=== PATIENT | male | born 1930 | race African-American/Black ===

== ENCOUNTER 2016-05-08 14:10 | Emergency (ER) | payer MEDICARE, BC ==
[2016-05-08 14:39] VITALS: TEMP 98.2
[2016-05-08 15:08] VITALS: BP 191/100; PULSE 89; RESP 20
[2016-05-08] MEDS ORDERED: LISINOPRIL 10 MG TAB PO STA (15:13)
--- NOTE | 2016-05-08 15:21 | ED ---
Skin/Abscess/FB HPI - General Chief complaint: Skin/Abscess/Foreign Body Stated complaint: Poss shingles Time Seen by Provider: 05/08/16 14:40 Source: patient, RN notes reviewed Mode of arrival: ambulatory Limitations: no limitations - History of Present Illness Initial comments: Patient is a 85-year-old male since emergency room for evaluation of skin rash. Patient states he thinks he has shingles. Patient states symptoms began "a few days ago". Patient states he has a rash beginning from his right flank area that radiates to the right side of his abdomen. Patient states the rash is very painful. Patient denies being on any medications or significant past medical history. Patient states he hasn't been to a primary care provider in many years. Patient denies any fevers or chills. Patient denies headache or dizziness. Patient denies chest pain or shortness of breath. Patient has nausea or vomiting. Patient denies any other symptoms or complaints. - Related Data Previous Rx's Medication Instructions Recorded HYDROcodone/APAP 5-325MG [Britt 1 tab PO Q6HR PRN #10 tab 05/08/16 5-325] Lisinopril [Zestril] 10 mg PO DAILY #10 tab 05/08/16 valACYclovir HCL [Valacyclovir] 1,000 mg PO TID 7 Days 05/08/16 Allergies Allergy/AdvReac Type Severity Reaction Status Date / Time No Known Allergies Allergy Verified 05/08/16 14:39 Review of Systems ROS Statement: Those systems with pertinent positive or pertinent negative responses have been documented in the HPI. ROS Other: All systems not noted in ROS Statement are negative. Past Medical History Past Medical History: No Reported History History of Any Multi-Drug Resistant Organisms: None Reported Past Surgical History: No Surgical Hx Reported Past Psychological History: No Psychological Hx Reported Smoking Status: Never smoker Past Alcohol Use History: Occasional Past Drug Use History: None Reported General Exam - General Exam Comments Initial Comments: Sitting in exam room, no acute distress. Limitations: no limitations General appearance: alert Head exam: Present: atraumatic, normocephalic, normal inspection Eye exam: Present: normal appearance ENT exam: Present: normal exam Neck exam: Present: normal inspection Respiratory exam: Present: normal lung sounds bilaterally. Absent: respiratory distress Cardiovascular Exam: Present: regular rate, normal rhythm, normal heart sounds Extremities exam: Present: normal inspection Back exam: Present: normal inspection Neurological exam: Present: alert, oriented X3, CN II-XII intact, normal gait Psychiatric exam: Present: normal affect, normal mood Skin exam: Present: warm, dry, other (Erythematous and crusted over papules along with clustered vesicles located on the right flank radiating to right side of mid abdomen. Pain on palpating over the lesions.) Course Vital Signs 05/08/16 05/08/16 14:36 15:07 Temperature 98.2 F Pulse Rate 100 89 Respiratory 16 20 Rate Blood Pressure 191/98 191/100 O2 Sat by Pulse 95 Oximetry Medical Decision Making - Medical Decision Making Patient is an 85-year-old male presents to the emergency room for evaluation of rash. Rash consistent with herpes zoster. Patient also noted to have elevated blood pressure. Will place patient on lisinopril and him follow-up with his primary care provider for reevaluation of blood pressure and possible placement on long-term blood pressure medications. Patient will be started on Valcyclovir for shingles. Patient will be given pain medications as needed. Patient states he understands everything that was discussed with him. Return parameters discussed. Case discussed with Dr. Holm. Disposition Clinical Impression: Herpes zoster, Hypertension Disposition: HOME SELF-CARE Condition: Good Instructions: Shingles (ED), Hypertension (ED) Additional Instructions: Take blood pressure medication as directed. Take valacyclovir as directed for shingles. Take Britt as needed for severe pain. Please follow-up with the primary care provider for reevaluation of blood pressure and shingles in 24-48 hours. If any new symptom arises, symptoms worsen or fever develops, return to ER as soon as possible. Prescriptions: HYDROcodone/APAP 5-325MG [Britt 5-325] 1 tab PO Q6HR PRN #10 tab PRN Reason: Pain Lisinopril [Zestril] 10 mg PO DAILY #10 tab valACYclovir HCL [Valacyclovir] 1,000 mg PO TID 7 Days Referrals: Nilsa Bryant MD [REFERRING] - 1-2 days Time of Disposition: 15:18
== END 2016-05-08 15:37 | disposition home or self-care (01) ==
LOC: EC 14:10
DX: B02.9 Zoster without complications (principal); I10 Essential (primary) hypertension
CPT/HCPCS: 99282

== ENCOUNTER 2017-06-02 20:08 | Emergency (ER) | payer MEDICARE ==
[2017-06-02 20:25] VITALS: PULSE 99; RESP 17
[2017-06-02] MEDS ORDERED: ACETAMINOPHEN TAB 500 MG TAB PO STA (21:23)
[2017-06-02] MEDS ORDERED: ONDANSETRON 4 MG/2 ML VIAL IVP STA (21:24)
--- NOTE | 2017-06-02 21:26 | ED ---
General Adult HPI - General Chief complaint: Nausea/Vomiting/Diarrhea Stated complaint: Vomiting Time Seen by Provider: 06/02/17 20:26 Source: patient, family, RN notes reviewed Mode of arrival: ambulatory Limitations: no limitations - History of Present Illness Initial comments: Patient is a pleasant 86-year-old male presenting to the emergency Department with complaints of nausea and vomiting. Onset of symptoms was yesterday. Patient also has fever. Patient has vomited several times. No abdominal pain. Patient has mild rhinorrhea. No sore throat. Patient does feel dry and fatigued and weak all over. No cough or dyspnea. - Related Data Home Medications Medication Instructions Recorded Confirmed metFORMIN HCL [Glucophage] 500 mg PO DAILY 06/02/17 06/02/17 Previous Rx's Medication Instructions Recorded Levofloxacin [Levaquin] 500 mg PO DAILY #9 tab 06/02/17 Allergies Allergy/AdvReac Type Severity Reaction Status Date / Time No Known Allergies Allergy Verified 06/02/17 20:59 Review of Systems ROS Statement: Those systems with pertinent positive or pertinent negative responses have been documented in the HPI. ROS Other: All systems not noted in ROS Statement are negative. Constitutional: Reports: fever, chills, weakness Eyes: Denies: eye pain ENT: Reports: congestion. Denies: ear pain Respiratory: Denies: cough, dyspnea Cardiovascular: Denies: chest pain Endocrine: Reports: fatigue Gastrointestinal: Reports: nausea, vomiting. Denies: abdominal pain, diarrhea, constipation Genitourinary: Denies: dysuria Musculoskeletal: Denies: back pain Skin: Denies: rash Neurological: Denies: headache Past Medical History Past Medical History: No Reported History Additional Past Medical History / Comment(s): shingles History of Any Multi-Drug Resistant Organisms: None Reported Past Surgical History: No Surgical Hx Reported Additional Past Surgical History / Comment(s): bilateral eye surgery Past Psychological History: No Psychological Hx Reported Smoking Status: Never smoker Past Alcohol Use History: Occasional Past Drug Use History: None Reported General Exam Limitations: no limitations General appearance: alert, in no apparent distress Head exam: Present: atraumatic Eye exam: Present: normal appearance, PERRL ENT exam: Present: normal oropharynx Neck exam: Present: normal inspection Respiratory exam: Present: normal lung sounds bilaterally Cardiovascular Exam: Present: regular rate, normal rhythm GI/Abdominal exam: Present: soft. Absent: tenderness Extremities exam: Present: normal inspection Neurological exam: Present: alert Psychiatric exam: Present: normal affect, normal mood Skin exam: Present: normal color Course Vital Signs 06/02/17 20:19 Temperature 100.4 F H Pulse Rate 99 Respiratory 17 Rate Blood Pressure 185/89 O2 Sat by Pulse 96 Oximetry EKG Findings - EKG Comments: EKG Findings:: Sinus tachycardia 103. IL 186. QRS 96. QT 334. QTC 437. Left axis. LVH criteria. Nonspecific T waves. Medical Decision Making - Medical Decision Making Patient reevaluated and feels much better. Patient and family updated on results. Patient requests discharge home. Case was discussed with Dr. De Dios who is okay with this and does recommend follow-up. - Lab Data Result diagrams: 06/02/17 20:50 06/02/17 20:50 Lab Results 06/02/17 06/02/17 06/02/17 Range/Units 20:50 20:50 20:50 WBC 11.3 H (3.8-10.6) k/uL RBC 4.53 (4.30-5.90) m/uL Hgb 13.5 (13.0-17.5) gm/dL Hct 38.5 L (39.0-53.0) % MCV 85.0 (80.0-100.0) fL MCH 29.7 (25.0-35.0) pg MCHC 34.9 (31.0-37.0) g/dL RDW 12.7 (11.5-15.5) % Plt Count 213 (150-450) k/uL Neutrophils % 73 % Lymphocytes % 14 % Monocytes % 9 % Eosinophils % 1 % Basophils % 0 % Neutrophils # 8.2 H (1.3-7.7) k/uL Lymphocytes # 1.6 (1.0-4.8) k/uL Monocytes # 1.0 (0-1.0) k/uL Eosinophils # 0.1 (0-0.7) k/uL Basophils # 0.0 (0-0.2) k/uL PT (9.0-12.0) sec INR (<1.2) APTT (22.0-30.0) sec Sodium 139 (137-145) mmol/L Potassium 4.1 (3.5-5.1) mmol/L Chloride 100 (98-107) mmol/L Carbon Dioxide 25 (22-30) mmol/L Anion Gap 14 mmol/L BUN 18 (9-20) mg/dL Creatinine 1.20 (0.66-1.25) mg/dL Est GFR (MDRD) Af Amer >60 (>60 ml/min/1.73 sqM) Est GFR (MDRD) Non-Af 58 (>60 ml/min/1.73 sqM) Glucose 142 H (74-99) mg/dL Plasma Lactic Acid Micah 1.4 (0.7-2.0) mmol/L Calcium 9.1 (8.4-10.2) mg/dL Total Bilirubin 0.6 (0.2-1.3) mg/dL AST 35 (17-59) U/L ALT 15 L (21-72) U/L Alkaline Phosphatase 85 (38-126) U/L Total Protein 7.8 (6.3-8.2) g/dL Albumin 4.1 (3.5-5.0) g/dL Urine Color Urine Appearance (Clear) Urine pH (5.0-8.0) Ur Specific [place] (1.001-1.035) Urine Protein (Negative) Urine Glucose (UA) (Negative) Urine Ketones (Negative) Urine Blood (Negative) Urine Nitrite (Negative) Urine Bilirubin (Negative) Urine Urobilinogen (<2.0) mg/dL Ur Leukocyte Esterase (Negative) Urine RBC (0-5) /hpf Urine WBC (0-5) /hpf Ur Squamous Epith Cells (0-4) /hpf Urine Mucus (None) /hpf Influenza Type A RNA (Not Detectd) Influenza Type B (PCR) (Not Detectd) 06/02/17 06/02/17 06/02/17 Range/Units 20:50 21:45 22:04 WBC (3.8-10.6) k/uL RBC (4.30-5.90) m/uL Hgb (13.0-17.5) gm/dL Hct (39.0-53.0) % MCV (80.0-100.0) fL MCH (25.0-35.0) pg MCHC (31.0-37.0) g/dL RDW (11.5-15.5) % Plt Count (150-450) k/uL Neutrophils % % Lymphocytes % % Monocytes % % Eosinophils % % Basophils % % Neutrophils # (1.3-7.7) k/uL Lymphocytes # (1.0-4.8) k/uL Monocytes # (0-1.0) k/uL Eosinophils # (0-0.7) k/uL Basophils # (0-0.2) k/uL PT 12.6 H (9.0-12.0) sec INR 1.3 H (<1.2) APTT 24.7 (22.0-30.0) sec Sodium (137-145) mmol/L Potassium (3.5-5.1) mmol/L Chloride (98-107) mmol/L Carbon Dioxide (22-30) mmol/L Anion Gap mmol/L BUN (9-20) mg/dL Creatinine (0.66-1.25) mg/dL Est GFR (MDRD) Af Amer (>60 ml/min/1.73 sqM) Est GFR (MDRD) Non-Af (>60 ml/min/1.73 sqM) Glucose (74-99) mg/dL Plasma Lactic Acid Micah (0.7-2.0) mmol/L Calcium (8.4-10.2) mg/dL Total Bilirubin (0.2-1.3) mg/dL AST (17-59) U/L ALT (21-72) U/L Alkaline Phosphatase (38-126) U/L Total Protein (6.3-8.2) g/dL Albumin (3.5-5.0) g/dL Urine Color Yellow Urine Appearance Clear (Clear) Urine pH 5.5 (5.0-8.0) Ur Specific [place] 1.024 (1.001-1.035) Urine Protein 2+ H (Negative) Urine Glucose (UA) Trace H (Negative) Urine Ketones 1+ H (Negative) Urine Blood Small H (Negative) Urine Nitrite Negative (Negative) Urine Bilirubin Negative (Negative) Urine Urobilinogen <2.0 (<2.0) mg/dL Ur Leukocyte Esterase Negative (Negative) Urine RBC 4 (0-5) /hpf Urine WBC 2 (0-5) /hpf Ur Squamous Epith Cells <1 (0-4) /hpf Urine Mucus Moderate H (None) /hpf Influenza Type A RNA Not Detected (Not Detectd) Influenza Type B (PCR) Not Detected (Not Detectd) - Radiology Data Radiology results: image reviewed (Chest x-ray shows left lower lobe infiltrate. ) Disposition Clinical Impression: Pneumonia Disposition: HOME SELF-CARE Condition: Stable Instructions: Pneumonia (ED) Additional Instructions: Please follow-up with Dr. De Dios next day or 2 for recheck. Return for difficulty in breathing, not tolerating fluids, worsening symptoms or any other concerns. Continue [id number] Tylenol as needed. Prescriptions: Levofloxacin [Levaquin] 500 mg PO DAILY #9 tab Referrals: Yahir De Dios MD [Primary Care Provider] - 1-2 days Time of Disposition: 22:42
[2017-06-02] MEDS ORDERED: SODIUM CHLORIDE 0.9% 500 ML IV SCH (21:30)
[2017-06-02 21:47] LABS: Basophils % (A) 0 %; Eosinophils # (A) 0.1 k/uL (0-0.7); Eosinophils % (A) 1 %; HCT 38.5 % (39.0-53.0); HGB 13.5 gm/dL (13.0-17.5); Lymphocytes # (A) 1.6 k/uL (1.0-4.8); Lymphocytes % (A) 14 %; MCH 29.7 pg (25.0-35.0); MCHC 34.9 g/dL (31.0-37.0); Mean Platelet Volume 8.4; Monocytes % (A) 9 %; Neutrophils # (A) 8.2 k/uL (1.3-7.7); Neutrophils % (A) 73 %; Platelet Count 213 k/uL (150-450); RBC 4.53 m/uL (4.30-5.90); RDW 12.7 % (11.5-15.5); WBC 11.3 k/uL (3.8-10.6)
[2017-06-02 21:52] LABS: INR 1.3 (<1.2); Partial Thromboplastin Time 24.7 sec (22.0-30.0); Prothrombin Time 12.6 sec (9.0-12.0)
[2017-06-02 22:01] LABS: ALT 15 U/L (21-72); AST 35 U/L (17-59); Albumin 4.1 g/dL (3.5-5.0); Alkaline Phosphatase 85 U/L (38-126); Anion Gap 14 mmol/L; Blood Urea Nitrogen 18 mg/dL (9-20); Calcium 9.1 mg/dL (8.4-10.2); Carbon Dioxide 25 mmol/L (22-30); Chloride 100 mmol/L (98-107); Glucose 142 mg/dL (74-99); Potassium 4.1 mmol/L (3.5-5.1); Sodium 139 mmol/L (137-145); Total Bilirubin 0.6 mg/dL (0.2-1.3); Total Protein 7.8 g/dL (6.3-8.2)
--- NOTE | 2017-06-02 22:04 | XR ---
EXAMINATION TYPE: XR chest 2V DATE OF EXAM: 06/02/2017 COMPARISON: NONE HISTORY: Fever TECHNIQUE: Frontal and lateral views of the chest are obtained. FINDINGS: There is evidence of infiltrate in the left lower lobe behind the heart. There is no defin ite heart failure. I see no definite pleural effusion. There are chest leads. Bony thorax is intact. IMPRESSION: Left lower lobe pneumonia. No gross heart failure.
--- NOTE | 2017-06-02 22:06 | XR ---
EXAMINATION TYPE: XR abdomen 2V DATE OF EXAM: 06/02/2017 COMPARISON: NONE HISTORY: Fever TECHNIQUE: 2 views FINDINGS: There is no sign of intestinal obstruction or pneumoperitoneum. Fecal pattern is normal. Th ere is infiltrate in the left lower lobe. There are no pathologic calcifications over the kidneys. Th ere is no sign of a mass. IMPRESSION: Nonacute abdomen.
[2017-06-02 22:23] LABS: Appearance,Urine Clear (Clear); Bilirubin,Urine Negative (Negative); Blood,Urine Small (Negative); Color,Urine Yellow; Glucose,Urine (UA) Trace (Negative); Ketones,Urine 1+ (Negative); Leukocyte Esterase,Urine Negative (Negative); Mucus,Urine Moderate /hpf; Nitrite,Urine Negative (Negative); PH, Urine 5.5 (5.0-8.0); Protein,Urine 2+ (Negative); RBC,Urine 4 /hpf (0-5); Specific Gravity,Urine 1.024 (1.001-1.035); Squamous Epithelial Cell,Urine <1 /hpf (0-4); Urobilinogen,Urine <2.0 mg/dL (<2.0); WBC,Urine 2 /hpf (0-5)
[2017-06-02] MEDS ORDERED: LEVOFLOXACIN 750 MG TAB PO STA (22:42)
[2017-06-02 22:45] VITALS: BP 133/74; TEMP 99.1
== END 2017-06-02 22:59 | disposition home or self-care (01) ==
LOC: EC 20:08
DX: J18.9 Pneumonia, unspecified organism (principal); Z79.84 Long term (current) use of oral hypoglycemic drugs
CPT/HCPCS: 36415; 93005; 80053; 83605; 85025; 85610; 85730; 81001; 87040; 87086; 87502; 71046; 74019; 99284; 96374; 96361; J2405

== ENCOUNTER 2018-08-12 15:29 | Inpatient (IN) | payer MEDICARE ==
[2018-08-12] MEDS ORDERED: ONDANSETRON 4 MG/2 ML VIAL IVP STA (16:52)
[2018-08-12] MEDS ORDERED: SODIUM CHLORIDE 0.9% 2,000 ML IV STA (16:52)
[2018-08-12 17:18] LABS: Basophils % (A) 0 %; Eosinophils # (A) 0.1 k/uL (0-0.7); Eosinophils % (A) 1 %; HCT 38.3 % (39.0-53.0); HGB 13.3 gm/dL (13.0-17.5); Lymphocytes # (A) 2.6 k/uL (1.0-4.8); Lymphocytes % (A) 25 %; MCH 29.8 pg (25.0-35.0); MCHC 34.7 g/dL (31.0-37.0); MCV 85.7 fL (80.0-100.0); Monocytes # (A) 1.2 k/uL (0-1.0); Monocytes % (A) 12 %; Neutrophils # (A) 5.8 k/uL (1.3-7.7); Neutrophils % (A) 56 %; Platelet Count 332 k/uL (150-450); RBC 4.46 m/uL (4.30-5.90); RDW 14.1 % (11.5-15.5); WBC 10.3 k/uL (3.8-10.6)
[2018-08-12 17:26] LABS: Albumin 4.7 g/dL (3.5-5.0); Calcium 9.9 mg/dL (8.4-10.2); Magnesium 2.4 mg/dL (1.6-2.3); Potassium 5.1 mmol/L (3.5-5.1); Total Bilirubin 0.7 mg/dL (0.2-1.3); Total Protein 8.2 g/dL (6.3-8.2)
--- NOTE | 2018-08-12 18:10 | CT ---
EXAMINATION TYPE: CT abdomen pelvis wo con DATE OF EXAM: 08/12/2018 COMPARISON: None HISTORY: Abdominal pain and diarrhea x1 week CT DLP: 373.3 mGycm Automated exposure control for dose reduction was used. TECHNIQUE: Helical acquisition of images was performed from the lung bases through the pelvis. FINDINGS: Lung bases show interstitial infiltrates and atelectasis. There is no pleural effusion. Heart is enla rged. There is no pericardial effusion. There are numerous hypodense masses throughout the liver. These measure up to 5 cm. Spleen appears no rmal. There is no evidence of a pancreatic mass. Bile ducts are not dilated. Stomach appears normal. There is no adrenal mass. Kidneys show normal size. There is no hydronephrosis. There is 2.5 cm corti beau cyst posterior right kidney. There is no retroperitoneal adenopathy. Bladder distends smoothly. There is 4.5 cm enlarged prostate. There is no free fluid in the pelvis. T here are numerous diverticula in the sigmoid colon. I see no sign of diverticulitis. There is mild bl adder wall thickening. No bladder mass identified. The appendix appears normal. There is no evidence of a bowel obstruction. There is suggestion of a ma ss involving the rectum on the left lateral wall. This could measure 3 cm. There is asymmetric lumina l air in the rectum. There is no mesenteric edema. There is no ascites. There is very slight loss of height of T11 vertebra. I see no focal bone destruction. 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 POSSIBLE LEFT LATERAL WALL RECTAL MASS . MODERATE INTERSTITIAL INFILTRATES AT THE LUNG BASES. RIGHT RENAL CORTICAL CYST. NORMAL APPENDIX. MILD URINARY BLADDER WALL THICKENING CONSISTENT WITH NONSPECIFIC CYSTITIS. SIGMOID DIVERTICULOSIS.
--- NOTE | 2018-08-12 18:12 | XR ---
EXAMINATION TYPE: XR chest 2V DATE OF EXAM: 08/12/2018 COMPARISON: 08/12/2018 HISTORY: Weakness TECHNIQUE: Frontal and lateral views of the chest are obtained. FINDINGS: Heart and mediastinum are normal. There is some coarsening of interstitial pulmonary jose ngs.. There is no pleural effusion. There are chest leads. No heart failure IMPRESSION: Mild coarsening of the lung markings consistent with some fibrosis and pulmonary congest ion.. Normal heart. Pulmonary vascularity improved compared to last exam.
--- NOTE | 2018-08-12 18:41 | ED ---
Nausea/Vomiting/Diarrhea HPI - General Chief complaint: Nausea/Vomiting/Diarrhea Stated complaint: diarrhea Time Seen by Provider: 08/12/18 16:27 Source: patient Mode of arrival: ambulatory Limitations: no limitations - History of Present Illness Initial comments: Patient complains of vomiting and diarrhea. He also has blood in the stool. He also has a progressive weight loss. Nothing makes the symptoms better or worse. He has taken no medicine for the symptoms. He has not eaten or drank anything unusual. He denies any focal weakness. He has no lightheadedness or dizziness. - Related Data Home Medications Medication Instructions Recorded Confirmed [place]-3 Fatty Acids/Fish Oil [Fish 1 cap PO DAILY 08/12/18 08/12/18 Oil 1,000 mg Softgel] Allergies Allergy/AdvReac Type Severity Reaction Status Date / Time No Known Allergies Allergy Verified 08/12/18 16:46 Review of Systems ROS Statement: Those systems with pertinent positive or pertinent negative responses have been documented in the HPI. ROS Other: All systems not noted in ROS Statement are negative. Past Medical History Past Medical History: No Reported History Additional Past Medical History / Comment(s): shingles History of Any Multi-Drug Resistant Organisms: None Reported Past Surgical History: No Surgical Hx Reported Additional Past Surgical History / Comment(s): bilateral eye surgery Past Psychological History: No Psychological Hx Reported Smoking Status: Never smoker Past Alcohol Use History: Occasional Past Drug Use History: None Reported General Exam Limitations: no limitations General appearance: alert, in no apparent distress Head exam: Present: atraumatic, normocephalic, normal inspection Eye exam: Present: normal appearance, PERRL, EOMI. Absent: scleral icterus, conjunctival injection, periorbital swelling ENT exam: Present: normal exam, mucous membranes moist Neck exam: Present: normal inspection. Absent: tenderness, meningismus, lymphadenopathy Respiratory exam: Present: normal lung sounds bilaterally. Absent: respiratory distress, wheezes, rales, rhonchi, stridor Cardiovascular Exam: Present: regular rate, normal rhythm, normal heart sounds. Absent: systolic murmur, diastolic murmur, rubs, gallop, clicks GI/Abdominal exam: Present: soft, normal bowel sounds. Absent: distended, tenderness, guarding, rebound, rigid Extremities exam: Present: normal inspection, full ROM, normal capillary refill. Absent: tenderness, pedal edema, joint swelling, calf tenderness Back exam: Present: normal inspection Neurological exam: Present: alert, oriented X3, CN II-XII intact Psychiatric exam: Present: normal affect, normal mood Skin exam: Present: warm, dry, intact, normal color. Absent: rash Course Vital Signs 08/12/18 15:35 Temperature 97.7 F Pulse Rate 96 Respiratory 20 Rate Blood Pressure 132/81 O2 Sat by Pulse 99 Oximetry Medical Decision Making - Medical Decision Making Patient presents with vomiting, diarrhea. He has blood in the stool. CT shows rectal mass with metastases. Patient will be admitted to the hospital. - Lab Data Result diagrams: 08/12/18 16:40 08/12/18 16:40 Lab Results 08/12/18 08/12/18 08/12/18 Range/Units 16:40 16:40 16:40 WBC 10.3 (3.8-10.6) k/uL RBC 4.46 (4.30-5.90) m/uL Hgb 13.3 (13.0-17.5) gm/dL Hct 38.3 L (39.0-53.0) % MCV 85.7 (80.0-100.0) fL MCH 29.8 (25.0-35.0) pg MCHC 34.7 (31.0-37.0) g/dL RDW 14.1 (11.5-15.5) % Plt Count 332 (150-450) k/uL Neutrophils % 56 % Lymphocytes % 25 % Monocytes % 12 % Eosinophils % 1 % Basophils % 0 % Neutrophils # 5.8 (1.3-7.7) k/uL Lymphocytes # 2.6 (1.0-4.8) k/uL Monocytes # 1.2 H (0-1.0) k/uL Eosinophils # 0.1 (0-0.7) k/uL Basophils # 0.0 (0-0.2) k/uL Sodium 139 (137-145) mmol/L Potassium 5.1 (3.5-5.1) mmol/L Chloride 99 (98-107) mmol/L Carbon Dioxide 27 (22-30) mmol/L Anion Gap 13 mmol/L BUN 40 H (9-20) mg/dL Creatinine 2.11 H (0.66-1.25) mg/dL Est GFR (CKD-EPI)AfAm 32 (>60 ml/min/1.73 sqM) Est GFR (CKD-EPI)NonAf 27 (>60 ml/min/1.73 sqM) Glucose 153 H (74-99) mg/dL Calcium 9.9 (8.4-10.2) mg/dL Magnesium 2.4 H (1.6-2.3) mg/dL Total Bilirubin 0.7 (0.2-1.3) mg/dL AST 108 H (17-59) U/L ALT 80 H (21-72) U/L Alkaline Phosphatase 283 H (38-126) U/L Troponin I <0.012 (0.000-0.034) ng/mL Total Protein 8.2 (6.3-8.2) g/dL Albumin 4.7 (3.5-5.0) g/dL Lipase 270 (23-300) U/L 08/12/18 18:39 Twelve-lead EKG shows ventricular rate 102 bpm, there are no ST elevations or depressions, there are PVCs. Interpreted by me as sinus tachycardia with PVCs. Disposition Clinical Impression: Colon cancer Disposition: ADMITTED IP TO THIS HOSP Condition: Fair Is patient prescribed a controlled substance at d/c from ED?: No Referrals: Yahir De Dios MD [Primary Care Provider] - 1-2 days
[2018-08-12 19:30] LABS: Appearance,Urine Clear (Clear); Bilirubin,Urine Negative (Negative); Blood,Urine Negative (Negative); Color,Urine Light Yellow; Glucose,Urine (UA) Negative (Negative); Ketones,Urine Negative (Negative); Leukocyte Esterase,Urine Negative (Negative); Nitrite,Urine Negative (Negative); PH, Urine 5.5 (5.0-8.0); Protein,Urine Negative (Negative); Specific Gravity,Urine 1.008 (1.001-1.035); Urobilinogen,Urine <2.0 mg/dL (<2.0)
[2018-08-12] MEDS ORDERED: cloNIDine HCL 0.2 MG TAB PO PRN (19:57)
[2018-08-12] MEDS: amLODIPine 5 MG TAB PO SCH (20:33)
[2018-08-12] MEDS: SODIUM CHLORIDE 0.9% 1,000 ML IV SCH (20:34)
--- NOTE | 2018-08-12 22:56 | P.HPIM ---
History of Present Illness H&P Date: 08/12/18 Chief Complaint: Lower abdominal pain and generalized weakness 88-year-old male with no significant past medical history. Patient sees Dr. De Dios as an outpatient however he is not compliant with follow- ups. Patient reports that he is in good health overall and all his life he's been avoiding seeing doctors. He does not recall having any colonoscopy done in the past however his doctor always told him to have one done. He reports that over the past few months he has noticed significant weight loss despite good appetite and by mouth intake. Patient lives alone. He reports that whenever he feels tired or sick he would go take a bath and feels better. He doesn't take any medications at home. He recently noticed some lower abdominal discomfort that resolves upon passing bowel movement he's been having frequent diarrheas sometimes mixed with blood. Denies any fevers or chills. Denies any nausea or vomiting. Patient daughter and cousin was at bedside there were disagreeing with his reported symptoms as patient was denying any problems. Patient daughter reports frequent falls over the past 2 years however patient again denies any denies any injuries associated with any falls. Patient doesn't use any assistive devices for ambulation. He denies any chest pain or trouble breathing denies any fevers or chills denies any recent traveling denies any nausea or vomiting denies any coughing. In the ED labs showed acute kidney injury CAT scan of the abdomen suggested rectal mass with liver lesions. Suspicious for malignancy. EKG showed frequent PVCs however electrolytes were within normal limits Review of Systems Pertinent positives as noted in HPI. All other systems were reviewed and are negative Past Medical History Past Medical History: No Reported History Additional Past Medical History / Comment(s): shingles History of Any Multi-Drug Resistant Organisms: None Reported Past Surgical History: No Surgical Hx Reported Additional Past Surgical History / Comment(s): bilateral eye surgery Past Psychological History: No Psychological Hx Reported Smoking Status: Never smoker Past Alcohol Use History: Occasional Past Drug Use History: None Reported - Past Family History Daughter(s) Family Medical History: No Reported History Medications and Allergies Home Medications Medication Instructions Recorded Confirmed Type [place]-3 Fatty Acids/Fish Oil [Fish 1 cap PO DAILY 08/12/18 08/12/18 History Oil 1,000 mg Softgel] Allergies Allergy/AdvReac Type Severity Reaction Status Date / Time No Known Allergies Allergy Verified 08/12/18 16:46 Physical Exam Vitals: Vital Signs Temp Pulse Resp BP Pulse Ox 08/12/18 19:21 84 20 170/93 97 08/12/18 18:42 97.9 F 76 15 180/93 99 08/12/18 17:30 76 12 166/90 97 08/12/18 17:00 75 14 156/97 98 08/12/18 15:35 97.7 F 96 20 132/81 99 Intake and Output 08/12/18 08/12/18 08/12/18 06:59 14:59 22:59 Other: Weight 70.307 kg Constitutional: No acute distress, conversant, pleasant, cachectic, Eyes: Anicteric sclerae, moist conjunctiva, no lid-lag Pupils equal round reactive to light ENMT: NC/AT Oropharynx clear, upper dentures, no erythema, or exudates Neck: Supple, FROM, no masses, or JVD No carotid bruits No thyromegaly Lungs: Clear to auscultation Clear to percussion Normal respiratory effort, no accessory muscle use Cardiovascular: Heart regular in rate and rhythm, No murmurs, gallops, or rubs No peripheral edema Abdominal: Soft Nontender, no guarding, rebound or rigidity Abdomen moving with respiration Normoactive bowel sounds No hepatomegaly, No splenomegaly No palpable mass No abdominal wall hernia noted Skin: Normal temperature, tone, texture, turgor No induration No subcutaneous nodules No rash, lesions No ulcers Extremities: No digital cyanosis No clubbing Pedal pulses intact and symmetrical Radial pulses intact and symmetrical No calf tenderness Psychiatric: Alert and oriented to person, place and time Appropriate affect fair judgment Neuro Muscles Strength 5/5 in all 4 extremities Sensation to light touch grossly present throughout Cranial nerves II-XII grossly intact No focal sensory deficits Lymphatics: no palpable cervical or supraclavicular , or inguinal lymph nodes Results CBC & Chem 7: 08/12/18 16:40 08/12/18 16:40 Labs: Abnormal Lab Results - Last 24 Hours (Table) 08/12/18 08/12/18 Range/Units 16:40 16:40 Hct 38.3 L (39.0-53.0) % Monocytes # 1.2 H (0-1.0) k/uL BUN 40 H (9-20) mg/dL Creatinine 2.11 H (0.66-1.25) mg/dL Glucose 153 H (74-99) mg/dL Magnesium 2.4 H (1.6-2.3) mg/dL AST 108 H (17-59) U/L ALT 80 H (21-72) U/L Alkaline Phosphatase 283 H (38-126) U/L Assessment and Plan Assessment: 88 year old male , with no significant past medical history , admitted as inpatient with anticipated length of stay >48 hours,, for abd pain and blood in bowel movement, weight loss. CT abd suggested rectal mass with liver mets. Plan: rectal mass with liver lesion and transaminitis. NABIL unintentional weight loss uncontrolled hypertension frequent PVCs plan blood pressure control start on norvasc PRN clonidine GI consult , for endoscopy and biopsy Cardio consult , due to abnormal EKG with frequent PVCs IVF hydration avoid nephrotoxic meds BP control follow up labs DVT prophylaxis heparin subcu 3 times a day PT/OT fall precautions Surrogate decision-maker: Patient daughter, full code Discussed with: Patient, ER, Anticipated discharge: 48-[address]: Home with home care A total of 60 minutes was spent on the care of this complex patient more than 50% of the time was spent in counseling and care coordination.
--- NOTE | 2018-08-12 22:58 | P.HPADDEND ---
H&P Addendum H&P Addendum Date: 08/12/18 Advanced Care Planning Active diagnoses: Rectal mass with multiple liver lesions, acute kidney injury Background: The patient was admitted for treatment of lower abdominal discomfort, unintentional weight loss, bloody bowel movements. Discussion: Person(s) present and participating in discussion: The patient, myself, and patient daughter and cousin Summary: The patient understands the possibility of underlying diagnosis of malignancy with metastasis. He is otherwise in good health per his report never been diagnosed with any problems doesn't take any medications at home. He is independent living alone able to take care of his activities of daily living. He elected to be a full code but does not want to be kept on machines for long- term benefits thought that outcomes would be poor In the event that he was not able to make her own medical decisions he has elected his daughter to make decisions. Time spent: Total time spent face to face in education and discussion directly related to advanced care planning: >15 minutes
[2018-08-12] MEDS: HEPARIN SODIUM,PORCINE 5,000 UNIT/ML 1 ML VIAL SQ SCH (23:23)
[2018-08-13] MEDS: SODIUM CHLORIDE 0.9% 1,000 ML IV SCH ×2 (06:23→17:39)
[2018-08-13 07:28] LABS: Albumin 3.3 g/dL (3.5-5.0); Calcium 8.5 mg/dL (8.4-10.2); Potassium 4.7 mmol/L (3.5-5.1); Total Bilirubin 0.8 mg/dL (0.2-1.3); Total Protein 6.2 g/dL (6.3-8.2)
[2018-08-13] MEDS: amLODIPine 5 MG TAB PO SCH (07:41)
[2018-08-13] MEDS: HEPARIN SODIUM,PORCINE 5,000 UNIT/ML 1 ML VIAL SQ SCH ×3 (07:41→23:49)
[2018-08-13 08:04] LABS: Glucose,Whole Blood 72 mg/dL (75-99)
[2018-08-13] MEDS: INSULIN ASPART (NovoLOG) 100 UNIT/ML VIAL SQ SCH ×4 (08:45→20:38)
[2018-08-13 10:47] VITALS: BMI 23.6
[2018-08-13 11:50] LABS: Glucose,Whole Blood 195 mg/dL (75-99)
--- NOTE | 2018-08-13 11:58 | P.CRDCN ---
History of Present Illness Consult date: 08/13/18 Reason for Consult (text): abnormal EKG, PVCs Chief complaint: Diarrhea, pelvic pain History of present illness: This is a pleasant 88-year-old gentleman who denies significant medical history however does not follow regularly with her physician. He has then apparently seen by Dr. Camargo in the past which time he was told he had a leaky heart valve, however our office has no recent records. Presented to the emergency department with complaints of ongoing diarrhea, rectal bleeding and pelvic pain. We were asked to see the patient in consultation for abnormal EKG with frequent PVCs. EKG on admission showed sinus rhythm with artifact and one single PVC, no acute ST-T wave abnormalities. Laboratory values on admission showed a be on of 40 and creatinine 2.11 which have improved to 25 and 1.21. Patient did undergo computed tomography scan of abdomen and pelvis which revealed a rectal mass with likely liver metastasis. Upon examination, patient is resting completely embedded. Denies shortness of breath, chest discomfort, orthopnea, edema, palpitations, dizziness or lightheadedness. Blood pressure was initially elevated on admission and he has been started on Norvasc with improvement. Past Medical History Past Medical History: No Reported History Additional Past Medical History / Comment(s): shingles History of Any Multi-Drug Resistant Organisms: None Reported Past Surgical History: No Surgical Hx Reported Additional Past Surgical History / Comment(s): bilateral eye surgery Past Psychological History: No Psychological Hx Reported Smoking Status: Never smoker Past Alcohol Use History: Occasional Past Drug Use History: None Reported - Past Family History Daughter(s) Family Medical History: No Reported History Medications and Allergies Home Medications Medication Instructions Recorded Confirmed Type [place]-3 Fatty Acids/Fish Oil [Fish 1 cap PO DAILY 08/12/18 08/12/18 History Oil 1,000 mg Softgel] Allergies Allergy/AdvReac Type Severity Reaction Status Date / Time No Known Allergies Allergy Verified 08/12/18 16:46 Physical Exam Vitals: Vital Signs Temp Pulse Pulse Resp BP BP Pulse Ox 08/13/18 05:00 98.1 F 76 16 110/49 99 08/12/18 21:51 97.6 F 68 16 174/85 99 08/12/18 20:33 79 18 164/95 97 08/12/18 20:30 77 20 157/88 97 08/12/18 19:30 73 15 170/93 96 08/12/18 19:21 84 20 170/93 97 08/12/18 18:42 97.9 F 76 15 180/93 99 08/12/18 17:30 76 12 166/90 97 08/12/18 17:00 75 14 156/97 98 08/12/18 15:35 97.7 F 96 20 132/81 99 Intake and Output 08/12/18 08/13/18 08/13/18 22:59 06:59 14:59 Intake Total 220 590 Output Total 300 Balance 220 290 Intake: Intake, IV Titration 100 Amount Sodium Chloride 0.9% 1, 100 000 ml @ 100 mls/hr IV . Q10H [facility] Rx#:[id number] Oral 120 590 Output: Urine 300 Other: Voiding Method Toilet Urinal Incontinent # Voids 1 Weight 70.307 kg 70.307 kg PHYSICAL EXAMINATION: HEENT: Head is atraumatic, normocephalic. Pupils equal, round. Neck is supple. There is no elevated jugular venous pressure. HEART EXAMINATION: Heart sounds regular, S1 and S2 with a systolic murmur. CHEST EXAMINATION: Lungs are clear to auscultation and precussion. No chest wall tenderness is noted on palpation or with deep breathing. ABDOMEN: Soft, with suprapubic tenderness. Bowel sounds are heard. No o rganomegaly noted. EXTREMITIES: 2+ peripheral pulses with no evidence of peripheral edema and no c custodial tenderness noted. NEUROLOGIC patient is awake, alert and oriented x3. . Results 08/12/18 16:40 08/13/18 06:55 Cardiac Enzymes 08/12/18 08/12/18 08/13/18 Range/Units 16:40 16:40 06:55 AST 108 H 77 H (17-59) U/L Troponin I <0.012 (0.000-0.034) ng/mL CBC 08/12/18 Range/Units 16:40 WBC 10.3 (3.8-10.6) k/uL RBC 4.46 (4.30-5.90) m/uL Hgb 13.3 (13.0-17.5) gm/dL Hct 38.3 L (39.0-53.0) % Plt Count 332 (150-450) k/uL Comprehensive Metabolic Panel 08/12/18 08/13/18 Range/Units 16:40 06:55 Sodium 139 139 (137-145) mmol/L Potassium 5.1 4.7 (3.5-5.1) mmol/L Chloride 99 109 H (98-107) mmol/L Carbon Dioxide 27 26 (22-30) mmol/L BUN 40 H 25 H (9-20) mg/dL Creatinine 2.11 H 1.21 (0.66-1.25) mg/dL Glucose 153 H 66 L (74-99) mg/dL Calcium 9.9 8.5 (8.4-10.2) mg/dL AST 108 H 77 H (17-59) U/L ALT 80 H 69 (21-72) U/L Alkaline Phosphatase 283 H 201 H (38-126) U/L Total Protein 8.2 6.2 L (6.3-8.2) g/dL Albumin 4.7 3.3 L (3.5-5.0) g/dL Current Medications Generic Name Dose Route Start Last Admin Trade Name Freq PRN Reason Stop Dose Admin Amlodipine Besylate 5 mg 08/12/18 20:00 08/13/18 07:41 Norvasc PO 5 mg DAILY [facility] Administration Clonidine 0.2 mg 08/12/18 19:57 Catapres PO TID PRN Blood Pressure - High Heparin Sodium (Porcine) 5,000 unit 08/13/18 00:00 08/13/18 07:41 Heparin SQ 5,000 unit Q8HR [facility] Administration Sodium Chloride 1,000 mls @ 100 mls/hr 08/12/18 20:00 08/13/18 06:23 Saline 0.9% IV 100 mls/hr .Q10H [facility] Administration Insulin Aspart 0 unit 08/13/18 07:30 08/13/18 08:45 Novolog SQ Not Given ACHS [facility] Protocol Intake and Output 08/12/18 08/13/18 08/13/18 22:59 06:59 14:59 Intake Total 220 590 Output Total 300 Balance 220 290 Intake: Intake, IV Titration 100 Amount Sodium Chloride 0.9% 1, 100 000 ml @ 100 mls/hr IV . 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 No further changes at this time. Thank you for this consultation we will follow the patient on an as-needed basis at this time. Please do not hesitate to contact us with questions. [employer] DEVELOPER note has been reviewed, I agree with a documented findings and plan of care. Patient was seen and examined.
--- NOTE | 2018-08-13 12:05 | P.PN ---
Subjective Progress Note Date: 08/13/18 Principal diagnosis: abdominal pain Patient may 8-year-old -[place] male with no significant past medical history as he is noncompliant with follow-ups who presented to the emergency department with complaints of lower abdominal pain and generalized weakness. In the emergency department he underwent an extensive evaluation. His initial vital signs were within normal limits. Initial laboratory analysis showed acute renal failure with the Bielen of 40 and a creatinine of 2.11, elevated liver enzymes with an AST of 108 and an ALT of 80, alk phos of 283. Urinalysis was negative. He underwent a CT abdomen and pelvis which demonstrated numerous liver lesions consistent with hepatic metastatic disease, and possible left lateral wall rectal mass. It also demonstrated some mild urinary bladder wall thickening and interstitial infiltrates. He was subsequently admitted for further monitoring and care of his acute renal failure and possible rectal mass. He was started on IV fluids and admitted. GI was consulted. Plan is for colonoscopy in a.m. Patient seen and examined at bedside. He is not having any abdominal pain today. He denies any chest pain, shortness of breath, nausea, or vomiting. Family states he will be staying with a cousin on discharge and would be interested in home health care as this may be overwhelming to them. Patient may also be a concurrent candidate for palliative care depending on results of colonoscopy. All questions answered. Objective - Vital Signs Vital signs: Vital Signs Temp 98.1 F 08/13/18 05:00 Pulse 76 08/13/18 05:00 Resp 16 08/13/18 05:00 BP 110/49 08/13/18 05:00 Pulse Ox 99 08/13/18 05:00 Intake & Output 08/12/18 08/13/18 08/13/18 18:59 06:59 18:59 Intake Total 810 Output Total 300 Balance 510 Weight 70.307 kg 70.307 kg Intake: Intake, IV Titration 100 Amount Sodium Chloride 0.9% 1, 100 000 ml @ 100 mls/hr IV . Q10H [facility] Rx#:[id number] Oral 710 Output: Urine 300 Other: Voiding Method Toilet Urinal Incontinent # Voids 1 - Exam General: non toxic, no distress, appears younger than stated age Derm: warm, dry Head: atraumatic, normocephalic, symmetric Eyes: EOMI, no lid lag, anicteric sclera Mouth: no lip lesion, mucus membranes moist, + thrush, Poor dentition Cardiovascular: S1S2 reg, no murmur, positive posterior tibial pulse bilateral, Lungs: CTA bilateral, no rhonchi, no rales , no accessory muscle use Abdominal: soft, nontender to palpation, no guarding, no appreciable organomegaly Ext: no gross muscle atrophy, no edema, no contractures Neuro: CN II-XI grossly intact, no focal neuro deficits Psych: Alert, oriented, appropriate affect - Labs CBC & Chem 7: 08/12/18 16:40 08/13/18 06:55 Labs: Abnormal Lab Results - Last 24 Hours (Table) 08/12/18 08/12/18 08/13/18 Range/Units 16:40 16:40 06:55 Hct 38.3 L (39.0-53.0) % Monocytes # 1.2 H (0-1.0) k/uL Chloride 109 H (98-107) mmol/L BUN 40 H 25 H (9-20) mg/dL Creatinine 2.11 H (0.66-1.25) mg/dL Glucose 153 H 66 L (74-99) mg/dL POC Glucose (mg/dL) (75-99) mg/dL Magnesium 2.4 H (1.6-2.3) mg/dL AST 108 H 77 H (17-59) U/L ALT 80 H (21-72) U/L Alkaline Phosphatase 283 H 201 H (38-126) U/L Total Protein 6.2 L (6.3-8.2) g/dL Albumin 3.3 L (3.5-5.0) g/dL 08/13/18 08/13/18 Range/Units 08:02 11:47 Hct (39.0-53.0) % Monocytes # (0-1.0) k/uL Chloride (98-107) mmol/L BUN (9-20) mg/dL Creatinine (0.66-1.25) mg/dL Glucose (74-99) mg/dL POC Glucose (mg/dL) 72 L 195 H (75-99) mg/dL Magnesium (1.6-2.3) mg/dL AST (17-59) U/L ALT (21-72) U/L Alkaline Phosphatase (38-126) U/L Total Protein (6.3-8.2) g/dL Albumin (3.5-5.0) g/dL Assessment and Plan Assessment: Liver lesion with possible rectal mass - Colonoscopy in AM, case discussed with GI. - Await result and will plan on oncology referral at discharge. NABIL - suspect due to dehydration - improving with fluids - avoid additional nephrotoxic agents - repeat BMP in AM Transaminitis - likely due to liver lesion - follow liver enzymes - no signs of cirrhosis on CT scan Weakness with recent mechanical falls - PT/OT eval - fall precautions - plan on home ehalth a D/C HTN urgency without underlying diagnosis of HTN - norvasc started follow BP carefully - prn catapress Thrush - Clotrimazole DVT prophylaxis: Heparin SC Discussed with: Patient, paige. nursing, Dr. Hebert Anticipated discharge: 1-[address]: home A total of 25 minutes was spent on the care of this complex patient more than 50% of the time was spent in counseling and care coordination.
[2018-08-13] MEDS: CLOTRIMAZOLE TROCHE 10 MG TROCHE MUCOUS MEM SCH ×4 (13:55→23:49)
[2018-08-13] MEDS ORDERED: PEG 3350-NA SULF,BICARB,CL/KCL 4,000 ML BOTTLE PO ONE (17:00)
[2018-08-13 17:57] LABS: Glucose,Whole Blood 71 mg/dL (75-99)
[2018-08-13] MEDS ORDERED: BISACODYL 5 MG TABLET.DR PO ONE (18:00)
--- NOTE | 2018-08-13 18:45 | P.CONS ---
History of Present Illness - Reason for Consult Consult date: 08/13/18 Rectal mass Requesting physician: Delmis Genao - Chief Complaint Weight loss, abdominal pain - History of Present Illness 88-year-old male with poor outpatient follow-up and medical history significant for shingles who presented to the hospital with complaints of weight loss and abdominal pain. Of note history has been taken in discussion with the patient as well as his daughter who is sitting bedside. They report that over the past 4-5 months the patient has lost approximately 40 pounds of weight unintentionally. The patient also has been complaining of pain in his lower abdomen and pelvic region of his abdomen. The patient's bowel movements have been described as loose and watery in the recent past with the patient also noting bright red blood per rectum. The patient denies any similar episodes of these symptoms in the past. The patient has no prior history of EGD or colonoscopy. The patient does report a family history of colon cancer in his brother. On presentation to the hospital the patient was noted to have a WBC 10.3, hemoglobin 13.3, platelet count 332,000, total bilirubin 0.8, alkaline phosphatase 201, AST 77, ALT 69. The patient also had a computed tomography scan of the abdomen with numerous findings including but not limited to liver lesions suspicious for metastatic cancer with suspicion of a rectal mass. Review of Systems REVIEW OF SYSTEMS: CONSTITUTIONAL: Denies any fevers, chills, but he does report fatigue and weight loss of approximately 40 pounds in the past 4-5 months.. CARDIOVASCULAR: Denies any chest pain, palpitations high or low blood pressures RESPIRATORY: Denies any shortness of breath, hemoptysis or cough. GENITOURINARY: No dysuria or hematuria. MUSCULOSKELETAL: No weakness reported. SKIN: Denies any new rashes or lesions, jaundice or pallor. PSYCHIATRIC: Denies any depression or anxiety. NEUROLOGY: Denies headache, denies any new focal deficits. EARS/NOSE/THROAT: No recent hearing change, congestion, nasal discharge or sore throat. EYES: No pain in eyes, discharge or change in vision. GASTROINTESTINAL: As per HPI. Past Medical History Past Medical History: No Reported History Additional Past Medical History / Comment(s): shingles History of Any Multi-Drug Resistant Organisms: None Reported Past Surgical History: No Surgical Hx Reported Additional Past Surgical History / Comment(s): bilateral eye surgery Past Psychological History: No Psychological Hx Reported Smoking Status: Never smoker Past Alcohol Use History: Occasional Past Drug Use History: None Reported Additional History: Family history: Patient reports colon cancer in his brother(s) - Past Family History Daughter(s) Family Medical History: No Reported History Medications and Allergies Home Medications Medication Instructions Recorded Confirmed Type [place]-3 Fatty Acids/Fish Oil [Fish 1 cap PO DAILY 08/12/18 08/12/18 History Oil 1,000 mg Softgel] Allergies Allergy/AdvReac Type Severity Reaction Status Date / Time No Known Allergies Allergy Verified 08/12/18 16:46 Physical Exam Vitals: Vital Signs Temp Pulse Pulse Resp BP BP Pulse Ox 08/13/18 05:00 98.1 F 76 16 110/49 99 08/12/18 21:51 97.6 F 68 16 174/85 99 08/12/18 20:33 79 18 164/95 97 08/12/18 20:30 77 20 157/88 97 08/12/18 19:30 73 15 170/93 96 08/12/18 19:21 84 20 170/93 97 08/12/18 18:42 97.9 F 76 15 180/93 99 08/12/18 17:30 76 12 166/90 97 08/12/18 17:00 75 14 156/97 98 08/12/18 15:35 97.7 F 96 20 132/81 99 Intake and Output 08/12/18 08/13/18 08/13/18 22:59 06:59 14:59 Intake Total 220 590 Output Total 300 Balance 220 290 Intake: Intake, IV Titration 100 Amount Sodium Chloride 0.9% 1, 100 000 ml @ 100 mls/hr IV . Q10H [facility] Rx#:[id number] Oral 120 590 Output: Urine 300 Other: Voiding Method Toilet Urinal Incontinent # Voids 1 Weight 70.307 kg On physical examination, patient appears comfortable in no apparent distress. HEAD: Normocephalic, atraumatic. EYES: No scleral icterus. No conjunctival injection. MOUTH: No lesions, tongue midline. NECK: Trachea midline, no gross abnormalities. CHEST: Clear to auscultation with no wheezing or rhonchi appreciated. HEART: Regular rate and rhythm. ABDOMEN: Soft, thin. Bowel sounds are positive. No organomegaly. No guarding or rigidity. EXTREMITIES: No pedal edema. SKIN: No rashes, no jaundice. NEUROLOGIC: Alert and oriented. No focal deficits. Results CBC & Chem 7: 08/12/18 16:40 08/13/18 06:55 Labs: Abnormal Lab Results - Last 24 Hours (Table) 08/12/18 08/12/18 08/13/18 Range/Units 16:40 16:40 06:55 Hct 38.3 L (39.0-53.0) % Monocytes # 1.2 H (0-1.0) k/uL Chloride 109 H (98-107) mmol/L BUN 40 H 25 H (9-20) mg/dL Creatinine 2.11 H (0.66-1.25) mg/dL Glucose 153 H 66 L (74-99) mg/dL POC Glucose (mg/dL) (75-99) mg/dL Magnesium 2.4 H (1.6-2.3) mg/dL AST 108 H 77 H (17-59) U/L ALT 80 H (21-72) U/L Alkaline Phosphatase 283 H 201 H (38-126) U/L Total Protein 6.2 L (6.3-8.2) g/dL Albumin 3.3 L (3.5-5.0) g/dL 08/13/18 Range/Units 08:02 Hct (39.0-53.0) % Monocytes # (0-1.0) k/uL Chloride (98-107) mmol/L BUN (9-20) mg/dL Creatinine (0.66-1.25) mg/dL Glucose (74-99) mg/dL POC Glucose (mg/dL) 72 L (75-99) mg/dL Magnesium (1.6-2.3) mg/dL AST (17-59) U/L ALT (21-72) U/L Alkaline Phosphatase (38-126) U/L Total Protein (6.3-8.2) g/dL Albumin (3.5-5.0) g/dL CT scan - abdomen: report reviewed (computed tomography scan of the abdomen with numerous findings including but not limited to liver lesions suspicious for metastatic cancer with suspicion of a rectal mass.) Assessment and Plan (1) Abnormal CT scan, colon Narrative/Plan: 88-year-old male with no prior history of colon cancer screening who presented to the hospital with complaints of 40 pounds of unintentional weight loss, with associated loose stool and blood per rectum and computed tomography scan findings suggestive of a rectal mass with multiple liver lesions suggestive of metastases. Suspicion is for metastatic rectal cancer, with differential including other primary malignancy, focal fatty infiltration of the liver or other etiology. Current Visit: Yes Status: Acute Code(s): R93.3 - ABNORMAL FINDINGS ON DX IMAGING OF PRT DIGESTIVE TRACT SNOMED Code(s): 173139511 (2) Unintentional weight loss Current Visit: Yes Status: Acute Code(s): R63.4 - ABNORMAL WEIGHT LOSS SNOMED Code(s): 897118150 (3) Blood per rectum Current Visit: Yes Status: Acute Code(s): K62.5 - HEMORRHAGE OF ANUS AND RECTUM SNOMED Code(s): 40198164 Plan: Supportive care Clear liquid diet Nothing by mouth after midnight Bowel prep ordered Plan for colonoscopic evaluation tomorrow Risks of the procedure including but not limited to perforation, infection, bleed all discussed at length patient and his daughter who was sitting bedside, in addition to his increased risk given her advanced age and at this time they would like to proceed with the procedure tomorrow morning, with all of their questions answered to their satisfaction Thank you for allowing us to dissipate in the care of the patient we will continue to follow
[2018-08-13 20:20] LABS: Glucose,Whole Blood 192 mg/dL (75-99)
[2018-08-14] MEDS: SODIUM CHLORIDE 0.9% 1,000 ML IV SCH ×2 (02:37→12:48)
[2018-08-14] MEDS: CLOTRIMAZOLE TROCHE 10 MG TROCHE MUCOUS MEM SCH ×4 (05:23→21:11)
[2018-08-14 07:30] LABS: Glucose,Whole Blood 73 mg/dL (75-99)
[2018-08-14] MEDS: INSULIN ASPART (NovoLOG) 100 UNIT/ML VIAL SQ SCH ×4 (08:46→21:10)
[2018-08-14] MEDS: HEPARIN SODIUM,PORCINE 5,000 UNIT/ML 1 ML VIAL SQ SCH ×2 (08:47→16:12)
[2018-08-14] MEDS: amLODIPine 5 MG TAB PO SCH (08:50)
[2018-08-14] MEDS ORDERED: LIDOCAINE 1% INJ 10MG/ML (20 ML MDV) ONE (09:25)
[2018-08-14] MEDS ORDERED: PROPOFOL 10 MG/ML 20 ML VIAL IV ONE (09:25)
[2018-08-14] MEDS ORDERED: IV FLUID CONTINUATION 1,000 ML IV ONE (09:25)
[2018-08-14] MEDS ORDERED: SODIUM CHLORIDE 0.9% 500 ML IV ONE (10:14)
--- NOTE | 2018-08-14 10:38 | P.PCN ---
Date of Procedure: 08/14/18 Description of Procedure: BRIEF HISTORY: 88-year-old male with poor outpatient follow-up and medical history significant for shingles who presented to the hospital with complaints of weight loss and abdominal pain. Of note history has been taken in discussion with the patient as well as his daughter who is sitting bedside. They report that over the past 4-5 months the patient has lost approximately 40 pounds of weight unintentionally. The patient also has been complaining of pain in his lower abdomen and pelvic region of his abdomen. The patient's bowel movements have been described as loose and watery in the recent past with the patient also noting bright red blood per rectum. The patient denies any similar episodes of these symptoms in the past. The patient has no prior history of EGD or colonoscopy. The patient does report a family history of colon cancer in his brother. On presentation to the hospital the patient was noted to have a WBC 10.3, hemoglobin 13.3, platelet count 332,000, total bilirubin 0.8, alkaline phosphatase 201, AST 77, ALT 69. The patient also had a computed tomography scan of the abdomen with numerous findings including but not limited to liver lesions suspicious for metastatic cancer with suspicion of a rectal mass. PROCEDURE PERFORMED: Colonoscopy with polypectomy, biopsy and tattoo. PREOPERATIVE DIAGNOSIS: Abnormal CT imaging suspicious for rectal mass, no prior colonoscopy, abdominal pain. ESTIMATED BLOOD LOSS: Minimal. IV sedation per Anesthesia. PROCEDURE: After informed consent was obtained, the patient, was brought into the endoscopy unit. IV sedation was administered by Anesthesia under continuous monitoring. Digital rectal examination was normal. Initially the Olympus CF-190 flexible video colonoscope was then inserted in the rectum, gradually advanced into the cecum without any difficulty. Careful examination was performed as the scope was gradually being withdrawn. Ileocecal valve and the appendiceal orifice were visualized and appeared normal. Prep was excellent. Mucosa of the cecum, ascending colon, transverse colon, descending colon, sigmoid colon, and rectum were examined, with 2 sessile transverse colon polyps measuring 2 mm and 3 mm removed with cold forcep polypectomy and 2 sessile transverse colon polyps measuring 6 and 8 mm removed with cold snare polypectomy. 2 sessile descending colon polyps measuring 3 and 4 mm removed with cold forcep polypectomy and 1 sessile descending colon polyp measuring 6 mm removed with cold snare polypectomy. 1 sessile sigmoid polyp measuring 3 mm removed with cold forcep polypectomy. Moderate diverticulosis of the left colon. Large rectal mass palpable on digital rectal exam visualized in the distal rectum occupying approximately one third of the lumen, biopsied and tattoos placed proximally and distally to the mass. The patient tolerated the procedure well. IMPRESSION: 1. 8 polyps removed from the transverse, descending and sigmoid colon and a combination of cold forceps and cold snare polypectomy (please see note for further detail). 2. Large mass in the distal rectum biopsied and tattooed. 3. Diverticulosis. RECOMMENDATIONS: Findings of this examination were discussed with the patient as well as his daughter. Okay for liquid diet. Can advance diet as tolerated if no plans for surgical intervention at this time. Await pathology from biopsies. Patient would likely benefit from surgical and oncology consults. Given the number of polyps if patient undergoes surgical intervention will need repeat colonoscopy within 12 months of the intervention.
[2018-08-14 11:27] LABS: Glucose,Whole Blood 74 mg/dL (75-99)
--- NOTE | 2018-08-14 12:26 | ECHOF ---
Referral Reason:PVCs MEASUREMENTS -------- HEIGHT: 172.7 cm WEIGHT: 70.3 kg BP: 110/49 RVIDd: 2.7 cm (< 3.3) IVSd: 1.2 cm (0.6 - 1.1) LVIDd: 4.3 cm (3.9 - 5.3) LVPWd: 1.1 cm (0.6 - 1.1) IVSs: 1.4 cm LVIDs: 3.1 cm LVPWs: 1.3 cm LA Diam: 3.8 cm (2.7 - 3.8) Ao Diam: 3.4 cm (2.0 - 3.7) AV Cusp: 2.3 cm (1.5 - 2.6) MV EXCURSION: 11.844 mm (> 18.000) MV EF SLOPE: 12 mm/s (70 - 150) EPSS: 1.7 cm MV E Rayshawn: 0.53 m/s MV DecT: 156 ms MV A Rayshawn: 1.21 m/s MV E/A Ratio: 0.44 AR PHT: 514 ms FINDINGS -------- Sinus rhythm. This was a technically good study. The left ventricular size is normal. There is borderline concentric left ventricular hypertrophy. Overall left ventricular systolic function is low-normal with, an EF between 50 - 55 %. The right ventricle is normal in size. The left atrial size is normal. The right atrium is normal in size. There is mild aortic valve sclerosis. There is mild aortic regurgitation. The mitral valve is normal. Mild mitral regurgitation is present. The tricuspid valve appears structurally normal. Mild tricuspid regurgitation present. Trace/mild (physiologic) pulmonic regurgitation. The aortic root size is normal. Normal inferior vena cava with normal inspiratory collapse consistent with estimated right atrial pre ssure of 5 mmHg. There is no pericardial effusion. CONCLUSIONS -------- 1. Sinus rhythm. 2. This was a technically good study. 3. The left ventricular size is normal. 4. There is borderline concentric left ventricular hypertrophy. 5. Overall left ventricular systolic function is low-normal with, an EF between 50 - 55 %. 6. The left atrial size is normal. 7. There is mild aortic valve sclerosis. 8. There is mild aortic regurgitation. 9. Mild mitral regurgitation is present. 10. The tricuspid valve appears structurally normal. 11. Mild tricuspid regurgitation present. 12. Trace/mild (physiologic) pulmonic regurgitation. 13. The aortic root size is normal. 14. Normal inferior vena cava with normal inspiratory collapse consistent with estimated right atrial pressure of 5 mmHg. 15. There is no pericardial effusion. BENCH MOLDER: Leslie Thomas RDCS
--- NOTE | 2018-08-14 15:20 | P.PN ---
Subjective Progress Note Date: 08/14/18 (delayed charting patient seen at 1200) Principal diagnosis: abdominal pain Patient is an 88-year-old -[place] male with no significant past medical history as he is noncompliant with follow-ups who presented to the emergency department with complaints of lower abdominal pain and generalized weakness. In the emergency department he underwent an extensive evaluation. His initial vital signs were within normal limits. Initial laboratory analysis showed acute renal failure with the Bielen of 40 and a creatinine of 2.11, elevated liver enzymes with an AST of 108 and an ALT of 80, alk phos of 283. Urinalysis was negative. He underwent a CT abdomen and pelvis which demonstrated numerous liver lesions consistent with hepatic metastatic disease, and possible left l ateral wall rectal mass. It also demonstrated some mild urinary bladder wall thickening and interstitial infiltrates. He was subsequently admitted for further monitoring and care of his acute renal failure and possible rectal mass. He was started on IV fluids and admitted. GI was consulted. He underwent colonoscopy on 08/14 with removal of 8 polyps and biopsy of rectal mass. Patient was having minimal amounts of blood in stool and will be observed overnight while awaiting surgery and oncology evaluation. Patient seen and examined at bedside. Abd pain improved, no nausea, no vomiting, frequent diarrhea and blood in stool. Multiple family members at bedside and updated on results of colonoscopy and need for further follow-up. Plan will be to go home with family along with home health. Objective - Vital Signs Vital signs: Vital Signs Temp 97.4 F L 08/14/18 12:34 Pulse 82 08/14/18 12:34 Resp 16 08/14/18 12:34 BP 157/74 08/14/18 12:34 Pulse Ox 98 08/14/18 12:34 Intake & Output 08/13/18 08/14/18 08/14/18 18:59 06:59 18:59 Intake Total 1220 1650 Output Total 300 Balance -300 1220 1650 Weight 70.307 kg Intake: IV 350 Intake, IV Titration 800 800 Amount Sodium Chloride 0.9% 1, 800 800 000 ml @ 100 mls/hr IV . Q10H [facility] Rx#:[id number] Oral 420 500 Output: Urine 300 Other: Voiding Method Toilet Toilet Toilet Urinal Urinal Bedside Commode Incontinent Incontinent Incontinent # Voids 4 3 4 # Bowel Movements 6 1 - Exam General: non toxic, no distress, appears younger than stated age Derm: warm, dry Head: atraumatic, normocephalic, symmetric Eyes: EOMI, no lid lag, anicteric sclera Mouth: no lip lesion, mucus membranes moist Cardiovascular: S1S2 reg, no murmur, positive posterior tibial pulse bilateral, Lungs: CTA bilateral, no rhonchi, no rales , no accessory muscle use Abdominal: soft, nontender to palpation, no guarding, no appreciable orga nomegaly Ext: no gross muscle atrophy, no edema, no contractures Neuro: CN II-XI grossly intact, no focal neuro deficits Psych: Alert, oriented, appropriate affect - Labs CBC & Chem 7: 08/12/18 16:40 08/13/18 06:55 Labs: Abnormal Lab Results - Last 24 Hours (Table) 08/13/18 08/13/18 08/14/18 Range/Units 17:54 20:17 07:28 POC Glucose (mg/dL) 71 L 192 H 73 L (75-99) mg/dL 08/14/18 Range/Units 11:23 POC Glucose (mg/dL) 74 L (75-99) mg/dL Assessment and Plan Assessment: Rectal mass with multiple liver lesions - s/p colonoscopy with minimal amounts of hematochzia, monitor overnight and repeat CBC in AM - Consult surgery regarding possible need for surgical removal, ? if will need referral to colorectal surgeon - Consult oncology for recommendations Transaminitis - likely due to liver lesion - follow liver enzymes - no signs of cirrhosis on CT scan Weakness with recent mechanical falls - PT/OT eval - fall precautions - plan on home health on D/C HTN urgency without underlying diagnosis of HTN - norvasc started follow BP closely if not imrpovement in AM increase norvasc - prn catapress Thrush - Clotrimazole NABIL, improved DVT prophylaxis: Heparin SC Discussed with: Patient, family, nursing Anticipated discharge: in AM Anticipated discharge place: home A total of 25 minutes was spent on the care of this complex patient more than 50 % of the time was spent in counseling and care coordination.
[2018-08-14 17:13] LABS: Glucose,Whole Blood 164 mg/dL (75-99)
[2018-08-14 20:54] LABS: Glucose,Whole Blood 165 mg/dL (75-99)
[2018-08-14 22:24] VITALS: RESP 16
[2018-08-15] MEDS: HEPARIN SODIUM,PORCINE 5,000 UNIT/ML 1 ML VIAL SQ SCH ×3 (00:01→15:53)
[2018-08-15] MEDS: CLOTRIMAZOLE TROCHE 10 MG TROCHE MUCOUS MEM SCH ×4 (04:38→15:53)
[2018-08-15 07:01] LABS: Glucose,Whole Blood 70 mg/dL (75-99)
[2018-08-15 07:36] LABS: HCT 33.6 % (39.0-53.0); HGB 11.4 gm/dL (13.0-17.5); MCH 29.1 pg (25.0-35.0); MCHC 34.1 g/dL (31.0-37.0); MCV 85.5 fL (80.0-100.0); Mean Platelet Volume 8.1; Platelet Count 282 k/uL (150-450); RBC 3.93 m/uL (4.30-5.90); RDW 13.7 % (11.5-15.5); WBC 12.2 k/uL (3.8-10.6)
[2018-08-15 07:45] LABS: Albumin 3.3 g/dL (3.5-5.0); Calcium 8.9 mg/dL (8.4-10.2); Potassium 4.5 mmol/L (3.5-5.1); Total Protein 6.3 g/dL (6.3-8.2)
[2018-08-15] MEDS: INSULIN ASPART (NovoLOG) 100 UNIT/ML VIAL SQ SCH ×2 (08:29→13:56)
[2018-08-15] MEDS: amLODIPine 5 MG TAB PO SCH (08:38)
[2018-08-15] MEDS ORDERED: BISACODYL 5 MG TABLET.DR PO STA (10:36)
[2018-08-15 11:13] LABS: Glucose,Whole Blood 87 mg/dL (75-99)
[2018-08-15 11:54] VITALS: BP 131/70; PULSE 77; TEMP 98
--- NOTE | 2018-08-15 13:05 | P.CONS ---
History of Present Illness - Reason for Consult Consult date: 08/15/18 rectal mass, liver lesions Requesting physician: Emilia Ortiz - Chief Complaint vomiting, diarrhea, blood in stool - History of Present Illness Mr. Shane is a very pleasant 88-year-old -[place] male who has not been to a physician for most of his life, presented to the emergency department with complaints of vomiting, blood in the stool and diarrhea. Patient states he's been having lower abdominal pain 1 month, denied bloody or tarry stool to me, states stool is yellow at times, burning sensation with bowel movements, he's had a 40 pound weight loss over the last year, denies to me any vomiting, changes in appetite or early satiety, he states sweats so bad the last week that he has to change as clothes, decreased energy levels over the last few weeks as well. Patient denies any personal history of cancer, no prior EGD or colonoscopy. The patient reported cancer in both brothers and sister but not sure what kind. On admit Hgb 13.3, platelet count 332,000, total bilirubin 0.8, alkaline phosphatase 201, AST 77, ALT 69. CT abd showing liver lesions, suspicious for metastatic disease and a rectal mass. He had colonoscopy with Dr. Hebert, polyps were removed and a large rectal mass was biopsied, path pending. Review of Systems 14 point review of systems is negative except as stated in HPI Past Medical History Past Medical History: No Reported History Additional Past Medical History / Comment(s): shingles History of Any Multi-Drug Resistant Organisms: None Reported Past Surgical History: No Surgical Hx Reported Additional Past Surgical History / Comment(s): bilateral eye surgery Past Psychological History: No Psychological Hx Reported Smoking Status: Never smoker Past Alcohol Use History: Occasional Past Drug Use History: None Reported - Past Family History Daughter(s) Family Medical History: No Reported History Medications and Allergies Home Medications Medication Instructions Recorded Confirmed Type [place]-3 Fatty Acids/Fish Oil [Fish 1 cap PO DAILY 08/12/18 08/12/18 History Oil 1,000 mg Softgel] Allergies Allergy/AdvReac Type Severity Reaction Status Date / Time No Known Allergies Allergy Verified 08/12/18 16:46 Physical Exam Vitals: Vital Signs Temp Pulse Resp BP BP Pulse Ox 08/15/18 11:41 98 F 77 16 131/70 96 08/15/18 05:00 98.7 F 78 16 142/74 99 08/14/18 21:00 98.8 F 88 16 149/77 99 08/14/18 17:40 97.6 F 87 20 141/91 94 L 08/14/18 15:45 16 Intake and Output 08/14/18 08/15/18 08/15/18 22:59 06:59 14:59 Intake Total 590 590 Output Total 600 500 Balance -10 90 Intake: Oral 590 590 Output: Urine 600 500 Other: Voiding Method Toilet Urinal Urinal # Voids 5 Results CBC & Chem 7: 08/15/18 06:15 08/15/18 06:15 Labs: Abnormal Lab Results - Last 24 Hours (Table) 08/14/18 08/14/18 08/15/18 Range/Units 17:12 20:52 06:15 WBC 12.2 H (3.8-10.6) k/uL RBC 3.93 L (4.30-5.90) m/uL Hgb 11.4 L (13.0-17.5) gm/dL Hct 33.6 L (39.0-53.0) % Glucose (74-99) mg/dL POC Glucose (mg/dL) 164 H 165 H (75-99) mg/dL AST (17-59) U/L ALT (21-72) U/L Alkaline Phosphatase (38-126) U/L Albumin (3.5-5.0) g/dL 08/15/18 08/15/18 Range/Units 06:15 06:56 WBC (3.8-10.6) k/uL RBC (4.30-5.90) m/uL Hgb (13.0-17.5) gm/dL Hct (39.0-53.0) % Glucose 65 L (74-99) mg/dL POC Glucose (mg/dL) 70 L (75-99) mg/dL AST 113 H (17-59) U/L ALT 96 H (21-72) U/L Alkaline Phosphatase 259 H (38-126) U/L Albumin 3.3 L (3.5-5.0) g/dL CT scan - abdomen: report reviewed CT scan - pelvis: report reviewed Assessment and Plan (1) Liver lesion Current Visit: Yes Status: Acute Priority: High Code(s): K76.9 - LIVER DISEASE, UNSPECIFIED SNOMED Code(s): 409443666 (2) Abnormal CT scan, colon Current Visit: Yes Status: Acute Priority: High Code(s): R93.3 - ABNORMAL FINDINGS ON DX IMAGING OF PRT DIGESTIVE TRACT SNOMED Code(s): 349227160 (3) Unintentional weight loss Current Visit: Yes Status: Acute Priority: High Code(s): R63.4 - ABNORMAL WEIGHT LOSS SNOMED Code(s): 141711044 Plan: Patient had 2 family members at the bedside during my interview and examination. We discussed the biopsy of the mass in the rectum, also reviewed the concerning findings on the computed tomography scan and the liver. Pending biopsy results for confirmation of primary. Reviewed that the image findings are most con sistent with a metastatic cancer and this if confirmed, is not curable. Diagnosis, prognosis and treatment options will be able to be discussed in greater detail once the pathology is returned. It is not clear from my discussion if the patient would want to choose any traditional treatment options but, he seems willing to have a discussion once all the information is known. All questions were answered to the best of my ability. We will follow-up with the patient in the outpatient setting if he is discharged prior to results returning
--- NOTE | 2018-08-15 13:20 | P.DS ---
Providers Date of admission: 08/14/18 16:01 Expected date of discharge: 08/15/18 Attending physician: Delmis Genao MD Consults: 08/12/18 19:57 Consult Physician Routine Consulting Provider: Neto Hebert Consult Reason/Comments: ? rectal cancer Do you want consulting provider notified?: Yes 08/12/18 19:58 Consult Physician Routine Consulting Provider: Mickey Conde Consult Reason/Comments: abnormal ekg, frequent PVCs Do you want consulting provider notified?: Yes 08/14/18 11:02 Consult Physician Routine Consulting Provider: Sotero Klein Consult Reason/Comments: rectal cancer Do you want consulting provider notified?: Yes 08/14/18 11:03 Consult Physician Routine Consulting Provider: Antony Smith Consult Reason/Comments: large rectal mass with liver mets Do you want consulting provider notified?: Yes Primary care physician: Yahir [facility] Course: The patient is an 88-year-old male with no significant PMH, noncompliant with follow-ups who presented to the ED with complaints of lower abdominal pain and weakness. In the ED, the patient was noted to have acute renal failure with BUN of 40 and creatinine of 2.11 along with deranged LFTs with AST 108, ALT 80, and alk phos 283. The patient underwent a CT abdomen and pelvis which revealed multiple liver lesions consistent with hepatic metastatic disease along with a left lateral wall rectal mass. The patient was subsequently admitted to the medicine service for further management. GI, general surgery, and oncology were consulted and the patient underwent a colonoscopy on 08/14/2018 with removal of 8 polyps and a biopsy of the rectal mass uneventfully. Patient was also evaluated by physical therapy who recommended discharge to home with a cane. The patient was seen and examined at the bedside on day of discharge with family at the bedside. The patient noted that he is feeling much better since his admission and has had a normal bowel movement earlier today, yellow in color, with no blood or melena noted. He also noted that his abdominal pain has completely resolved and he denied nausea, vomiting, chest pain, shortness of breath, fever, or chills. Discussed with the patient the findings of the computed tomography scan and that the diagnosis is probably metastatic colorectal cancer. Discussed with the patient that he will need to follow-up with oncology and with GI following his discharge. The patient is in agreement with this plan and is eager to return to home where he will be having more assistance with his family. Physical Examination General: Non-toxic, in no acute distress, appears stated age, normal weight HEENT: NC/AT, anicteric sclerae, moist conjunctiva, no lid-lag, PERRLA Cardiovascular: S1/S2 wnl, no murmurs, rubs, or gallops Lungs: Clear to auscultation, normal respiratory effort, no accessory muscle use Abdominal: Soft, non-tender, non-distended, no guarding, rebound, or rigidity Skin: Warm, dry Extremities: No edema or contractures Psychiatric: Alert and oriented to person, place and time, appropriate affect Neuro: CN II-XII grossly intact, Strength 5/5 in all 4 extremities, Speech intact, Sensation to light touch grossly intact throughout Discharge diagnosis: Rectal mass, multiple liver lesions; transaminitis; hypertension; thrush; NABIL, resolved; mild protein calorie malnutrition A total of 40 minutes of time were spent preparing this complex discharge summary. Patient Condition at Discharge: Fair Plan - Discharge Summary Discharge Rx Participant: No New Discharge Prescriptions: New amLODIPine [Norvasc] 5 mg PO DAILY #30 tab Continue [place]-3 Fatty Acids/Fish Oil [Fish Oil 1,000 mg Softgel] 1 cap PO DAILY Discharge Medication List [place]-3 Fatty Acids/Fish Oil [Fish Oil 1,000 mg Softgel] 1 cap PO DAILY 08/12/18 [History] amLODIPine [Norvasc] 5 mg PO DAILY #30 tab 08/15/18 [Rx] Follow up Appointment(s)/Referral(s): Yahir De Dios MD [Primary Care Provider] - 1-2 days [facility], [NON-STAFF] - As Needed Activity/Diet/Wound Care/Special Instructions: pt will be d/c. home with a cane. Discharge Disposition: HOME WITH HOME HEALTH SERVICES
== END 2018-08-15 16:10 | disposition home health service (06) | DRG 375 ==
LOC: EC 15:29 → INTOOBSV 18:41 → 3NMEDONC 18:41 → OBSVTOIN 08-14 16:01
PROVIDERS: ADMIT Internal Medicine; ATTEND Internal Medicine
PROC: 0DBN8ZX Excision of Sigmoid Colon, Via Natural or Artificial Opening Endoscopic, Diagnostic (ICD-10-PCS; 2018-08-14)
PROC: 0DBM8ZX Excision of Descending Colon, Via Natural or Artificial Opening Endoscopic, Diagnostic (ICD-10-PCS; principal; 2018-08-14 08:30)
PROC: 0DBL8ZX Excision of Transverse Colon, Via Natural or Artificial Opening Endoscopic, Diagnostic (ICD-10-PCS; 2018-08-14 08:30)
PROC: 0DBP8ZX Excision of Rectum, Via Natural or Artificial Opening Endoscopic, Diagnostic (ICD-10-PCS; 2018-08-14 08:30)
DX: C20 Malignant neoplasm of rectum (principal); C78.7 Secondary malignant neoplasm of liver and intrahepatic bile duct; E44.1 Mild protein-calorie malnutrition; K92.1 Melena; N17.9 Acute kidney failure, unspecified; B37.0 Candidal stomatitis; E86.0 Dehydration; D12.3 Benign neoplasm of transverse colon; D12.4 Benign neoplasm of descending colon; D12.5 Benign neoplasm of sigmoid colon; K57.30 Diverticulosis of large intestine without perforation or abscess without bleeding; I16.0 Hypertensive urgency; I49.3 Ventricular premature depolarization; I10 Essential (primary) hypertension; Z68.23 Body mass index [BMI] 23.0-23.9, adult; Z79.899 Other long term (current) drug therapy; Z91.81 History of falling; Z71.3 Dietary counseling and surveillance; Z86.19 Personal history of other infectious and parasitic diseases; Z91.19 Patient's noncompliance with other medical treatment and regimen; Z80.0 Family history of malignant neoplasm of digestive organs
CPT/HCPCS: 36415; 44404; 45380; 45385; 71046; 74176; 80053; 81003; 83690; 83735; 84484; 85025; 85027; 88305; 93005; 93306; 96361; 96374; 99285

== ENCOUNTER 2018-08-19 16:23 | Emergency (ER) | payer MEDICARE ==
[2018-08-19] MEDS ORDERED: SODIUM CHLORIDE 0.9% 1,000 ML IV STA (16:52)
--- NOTE | 2018-08-19 16:57 | ED ---
General Adult HPI - General Chief complaint: Recheck/Abnormal Lab/Rx Stated complaint: poss Dehydration Time Seen by Provider: 08/19/18 16:38 Source: patient, RN notes reviewed Mode of arrival: ambulatory Limitations: no limitations - History of Present Illness Initial comments: 88-year-old male presents for evaluation of yellow discoloration of the eyes, generalized weakness and diarrhea. Patient was recently diagnosed with colon cancer with possible liver metastases. He has had appetite with no vomiting however he has had significant diarrhea over the past several days. His home care nurse noted that he had some yellowing of the eyes and suggested he presented emergency department for evaluation. Patient has not yet started any treatment for his newly diagnosed colon cancer. Denies fever. Denies cough or dyspnea. Denies abdominal pain. - Related Data Previous Rx's Medication Instructions Recorded amLODIPine [Norvasc] 5 mg PO DAILY #30 tab 08/15/18 Allergies Allergy/AdvReac Type Severity Reaction Status Date / Time No Known Allergies Allergy Verified 08/19/18 17:42 Review of Systems ROS Statement: Those systems with pertinent positive or pertinent negative responses have been documented in the HPI. ROS Other: All systems not noted in ROS Statement are negative. Past Medical History Past Medical History: No Reported History, Hypertension Additional Past Medical History / Comment(s): shingles, lesions to the liver with a mass on the colon History of Any Multi-Drug Resistant Organisms: None Reported Past Surgical History: No Surgical Hx Reported Additional Past Surgical History / Comment(s): bilateral eye surgery Past Psychological History: No Psychological Hx Reported Smoking Status: Never smoker Past Alcohol Use History: Occasional Past Drug Use History: None Reported - Past Family History Daughter(s) Family Medical History: No Reported History General Exam Limitations: no limitations General appearance: alert, in no apparent distress Head exam: Present: atraumatic, normocephalic Eye exam: Present: normal appearance, PERRL, EOMI ENT exam: Present: mucous membranes dry (Geographic tongue) Neck exam: Present: normal inspection. Absent: tenderness, meningismus Respiratory exam: Present: normal lung sounds bilaterally Cardiovascular Exam: Present: regular rate, normal rhythm GI/Abdominal exam: Present: soft. Absent: distended, tenderness, guarding, rebound Extremities exam: Present: normal inspection, normal capillary refill. Absent: pedal edema, calf tenderness Neurological exam: Present: alert, oriented X3. Absent: motor sensory deficit Skin exam: Present: warm, dry, intact. Absent: cyanosis, diaphoretic Course Vital Signs 08/19/18 08/19/18 16:26 17:12 Temperature 98.2 F Pulse Rate 101 H 86 Respiratory 20 18 Rate Blood Pressure 135/68 127/74 O2 Sat by Pulse 100 99 Oximetry EKG Findings - EKG Comments: EKG Findings:: EKG: Normal sinus rhythm PVC, LVH, no ST segment elevation rate of 81, ME interval 184, QRS duration 82, QTC 425 Medical Decision Making - Medical Decision Making 88 -year-old male presenting for concern for dehydration and jaundice. Patient does not appear jaundiced on exam, he does have some underlying cloudiness of th e sclera had no scleral icterus. He has no abdominal pain no right upper quadrant pain. CT reviewed from 5 days prior does show concern for liver metastases. Patient does clinically appear dehydrated, given IV fluid in the emergency department. Laboratory studies are obtained, he has normal CBC was stable hemoglobin. He has CMP including normal electrolytes with normal bilirubin. He has transaminitis and elevation in alkaline phosphatase 400. This is basically stable from recent admission. I did reevaluate the patient after IV hydration he is feeling better. Patient and his daughter are comfortable with discharge. They will return with any worsening or changing symptoms. - Lab Data Result diagrams: 08/19/18 17:13 08/19/18 17:13 Lab Results 08/19/18 08/19/18 08/19/18 Range/Units 17:13 17:13 17:13 WBC 11.3 H (3.8-10.6) k/uL RBC 4.32 (4.30-5.90) m/uL Hgb 12.2 L (13.0-17.5) gm/dL Hct 36.6 L (39.0-53.0) % MCV 84.7 (80.0-100.0) fL MCH 28.3 (25.0-35.0) pg MCHC 33.4 (31.0-37.0) g/dL RDW 14.2 (11.5-15.5) % Plt Count 343 (150-450) k/uL Neutrophils % 63 % Lymphocytes % 20 % Monocytes % 12 % Eosinophils % 1 % Basophils % 0 % Neutrophils # 7.2 (1.3-7.7) k/uL Lymphocytes # 2.2 (1.0-4.8) k/uL Monocytes # 1.3 H (0-1.0) k/uL Eosinophils # 0.1 (0-0.7) k/uL Basophils # 0.1 (0-0.2) k/uL PT 13.2 H (9.0-12.0) sec INR 1.3 H (<1.2) APTT 26.9 (22.0-30.0) sec Sodium 137 (137-145) mmol/L Potassium 4.7 (3.5-5.1) mmol/L Chloride 100 (98-107) mmol/L Carbon Dioxide 25 (22-30) mmol/L Anion Gap 12 mmol/L BUN 24 H (9-20) mg/dL Creatinine 1.03 (0.66-1.25) mg/dL Est GFR (CKD-EPI)AfAm 76 (>60 ml/min/1.73 sqM) Est GFR (CKD-EPI)NonAf 65 (>60 ml/min/1.73 sqM) Glucose 210 H (74-99) mg/dL Calcium 9.1 (8.4-10.2) mg/dL Magnesium 2.0 (1.6-2.3) mg/dL Total Bilirubin 0.8 (0.2-1.3) mg/dL AST 112 H (17-59) U/L ALT 91 H (21-72) U/L Alkaline Phosphatase 400 H (38-126) U/L Creatine Kinase 178 H (55-170) U/L Total Protein 7.4 (6.3-8.2) g/dL Albumin 4.0 (3.5-5.0) g/dL Disposition Clinical Impression: Liver lesion, Colon cancer, Dehydration Disposition: ADMITTED IP TO THIS HOSP Condition: Good Instructions (If sedation given, give patient instructions): Dehydration (ED) Is patient prescribed a controlled substance at d/c from ED?: No Referrals: Yahir De Dios MD [Primary Care Provider] - 1-2 days Time of Disposition: 18:24
[2018-08-19 17:13] VITALS: PULSE 86
[2018-08-19 17:37] LABS: Calcium 9.1 mg/dL (8.4-10.2); Potassium 4.7 mmol/L (3.5-5.1); Total Bilirubin 0.8 mg/dL (0.2-1.3); Total Protein 7.4 g/dL (6.3-8.2)
[2018-08-19 17:39] LABS: INR 1.3 (<1.2); Partial Thromboplastin Time 26.9 sec (22.0-30.0); Prothrombin Time 13.2 sec (9.0-12.0)
[2018-08-19 17:43] LABS: Basophils # (A) 0.1 k/uL (0-0.2); Basophils % (A) 0 %; Eosinophils # (A) 0.1 k/uL (0-0.7); Eosinophils % (A) 1 %; HCT 36.6 % (39.0-53.0); HGB 12.2 gm/dL (13.0-17.5); Lymphocytes # (A) 2.2 k/uL (1.0-4.8); Lymphocytes % (A) 20 %; MCH 28.3 pg (25.0-35.0); MCHC 33.4 g/dL (31.0-37.0); MCV 84.7 fL (80.0-100.0); Monocytes # (A) 1.3 k/uL (0-1.0); Monocytes % (A) 12 %; Neutrophils # (A) 7.2 k/uL (1.3-7.7); Neutrophils % (A) 63 %; Platelet Count 343 k/uL (150-450); RBC 4.32 m/uL (4.30-5.90); RDW 14.2 % (11.5-15.5); WBC 11.3 k/uL (3.8-10.6)
[2018-08-19 18:51] VITALS: BP 162/91; RESP 19; TEMP 97.6
== END 2018-08-19 18:51 | disposition other institution (70) ==
LOC: EC 16:23
DX: E86.0 Dehydration (principal); C18.9 Malignant neoplasm of colon, unspecified; K76.89 Other specified diseases of liver; R74.0 Nonspecific elevation of levels of transaminase and lactic acid dehydrogenase [LDH]; R74.8 Abnormal levels of other serum enzymes; K14.1 Geographic tongue
CPT/HCPCS: 36415; 80053; 82550; 83735; 85025; 85610; 85730; 93005; 96360; 99285

== ENCOUNTER 2018-09-06 10:32 | Inpatient (IN) | payer MEDICARE ==
[2018-09-06] MEDS ORDERED: SODIUM CHLORIDE 0.9% 1,000 ML IV STA (11:17)
--- NOTE | 2018-09-06 11:26 | ED ---
General Adult HPI - General Chief complaint: Nausea/Vomiting/Diarrhea Stated complaint: diarrhea Time Seen by Provider: 09/06/18 10:50 Source: patient, family, RN notes reviewed Mode of arrival: ambulatory Limitations: no limitations - History of Present Illness Initial comments: 88-year-old male presents to the emergency department for a chief complaint of diarrhea. Patient does have a history of hypertension and was diagnosed with colon cancer with lesions to the metastases on 08/12/2018. Patient states that he has been having diarrhea since July. States that today this seems to have even worsened and he was unable to make it to the bathroom one time. States he is scheduled to receive chemotherapy in 3 days for the first time. Patient den ies any abdominal pain. Denies any fevers or chills, denies any nausea or vomiting. Patient has not been eating and which is normal because he states everything goes through him.Patient has no other complaints at this time including shortness of breath, chest pain, abdominal pain, nausea or vomiting, headache, or visual changes. - Related Data Home Medications Medication Instructions Recorded Confirmed Loperamide HCl [Imodium A-D] 2 mg PO QID PRN 09/06/18 09/06/18 Previous Rx's Medication Instructions Recorded amLODIPine [Norvasc] 5 mg PO DAILY #30 tab 08/15/18 Allergies Allergy/AdvReac Type Severity Reaction Status Date / Time No Known Allergies Allergy Verified 09/06/18 10:47 Review of Systems ROS Statement: Those systems with pertinent positive or pertinent negative responses have been documented in the HPI. ROS Other: All systems not noted in ROS Statement are negative. Past Medical History Past Medical History: No Reported History, Hypertension Additional Past Medical History / Comment(s): shingles, lesions to the liver with a mass on the colon History of Any Multi-Drug Resistant Organisms: None Reported Past Surgical History: No Surgical Hx Reported Additional Past Surgical History / Comment(s): bilateral eye surgery Past Psychological History: No Psychological Hx Reported Smoking Status: Never smoker Past Alcohol Use History: Occasional Past Drug Use History: None Reported - Past Family History Daughter(s) Family Medical History: No Reported History General Exam Limitations: no limitations General appearance: alert, in no apparent distress Head exam: Present: atraumatic, normocephalic, normal inspection Eye exam: Present: normal appearance, PERRL, EOMI. Absent: scleral icterus, conjunctival injection, periorbital swelling ENT exam: Absent: mucous membranes moist (Mucous membranes appears somewhat dry) Neck exam: Present: normal inspection, full ROM. Absent: tenderness, meningismus, lymphadenopathy Respiratory exam: Present: normal lung sounds bilaterally. Absent: respiratory distress, wheezes, rales, rhonchi, stridor Cardiovascular Exam: Present: regular rate, normal rhythm, normal heart sounds. Absent: systolic murmur, diastolic murmur, rubs, gallop, clicks GI/Abdominal exam: Present: soft, normal bowel sounds. Absent: distended, t enderness, guarding, rebound, rigid Neurological exam: Present: alert, oriented X3, CN II-XII intact Psychiatric exam: Present: normal affect, normal mood Course Vital Signs 09/06/18 09/06/18 10:37 14:17 Temperature 97.5 F L Pulse Rate 55 L 84 Respiratory 20 16 Rate Blood Pressure 131/73 146/86 O2 Sat by Pulse 94 L 100 Oximetry Medical Decision Making - Medical Decision Making 88-year-old male with a past medical history of primary colon cancer with liver metastases presents to the emergency determine for a chief complaint of diarrhea. States this has been ongoing for about a month. States it is worsening today. States he thinks he is dehydrated. Denies abdominal pain. Exam is unremarkable although patient does appear dry. CBC shows a white count of 13.2, likely reactive. Hemoglobin 11 which is patient's baseline. CMP does show an elevated bilirubin of 3.9 which has increased from 0.8 about 2 weeks ago. Mildly worsening transaminitis noted. Due to elevation of hyper bilirubin ultrasound was ordered due to concern of obstructive nature. Ultrasound does show trace pericholecystic fluid and gallbladder wall thickening that may be reactive as there are innumerable hepatic masses. No common bile duct dilation or focal right upper quadrant pain during the examination. There is also a benign-appearing right renal cyst. Amylase lipase currently pending. Given these findings patient will be admitted with consult to GI. - Lab Data Result diagrams: 09/06/18 10:54 09/06/18 10:54 Lab Results 09/06/18 09/06/18 09/06/18 Range/Units 10:54 10:54 10:54 WBC 13.2 H (3.8-10.6) k/uL RBC 3.87 L (4.30-5.90) m/uL Hgb 11.0 L (13.0-17.5) gm/dL Hct 33.3 L (39.0-53.0) % MCV 86.2 (80.0-100.0) fL MCH 28.5 (25.0-35.0) pg MCHC 33.1 (31.0-37.0) g/dL RDW 15.7 H (11.5-15.5) % Plt Count 344 (150-450) k/uL Neutrophils % 77 % Lymphocytes % 9 % Monocytes % 10 % Eosinophils % 1 % Basophils % 0 % Neutrophils # 10.1 H (1.3-7.7) k/uL Lymphocytes # 1.2 (1.0-4.8) k/uL Monocytes # 1.3 H (0-1.0) k/uL Eosinophils # 0.1 (0-0.7) k/uL Basophils # 0.0 (0-0.2) k/uL Sodium 136 L (137-145) mmol/L Potassium 4.8 (3.5-5.1) mmol/L Chloride 102 (98-107) mmol/L Carbon Dioxide 20 L (22-30) mmol/L Anion Gap 14 mmol/L BUN 23 H (9-20) mg/dL Creatinine 1.15 (0.66-1.25) mg/dL Est GFR (CKD-EPI)AfAm 66 (>60 ml/min/1.73 sqM) Est GFR (CKD-EPI)NonAf 57 (>60 ml/min/1.73 sqM) Glucose 109 H (74-99) mg/dL Calcium 9.0 (8.4-10.2) mg/dL Magnesium 2.0 (1.6-2.3) mg/dL Total Bilirubin 3.9 H (0.2-1.3) mg/dL AST 152 H (17-59) U/L ALT 80 H (21-72) U/L Alkaline Phosphatase 561 H (38-126) U/L Total Protein 7.2 (6.3-8.2) g/dL Albumin 3.6 (3.5-5.0) g/dL Amylase 100 (30-110) U/L Lipase 114 (23-300) U/L Disposition Clinical Impression: Hyperbilirubinemia, Thickening of wall of gallbladder with pericholecystic fluid Disposition: ADMITTED IP TO THIS HOSP Condition: Fair Is patient prescribed a controlled substance at d/c from ED?: No Referrals: Yahir De Dios MD [Primary Care Provider] - 1-2 days Time of Disposition: 14:43
[2018-09-06 11:39] LABS: Basophils % (A) 0 %; Eosinophils # (A) 0.1 k/uL (0-0.7); Eosinophils % (A) 1 %; HCT 33.3 % (39.0-53.0); Lymphocytes # (A) 1.2 k/uL (1.0-4.8); Lymphocytes % (A) 9 %; MCH 28.5 pg (25.0-35.0); MCHC 33.1 g/dL (31.0-37.0); MCV 86.2 fL (80.0-100.0); Mean Platelet Volume 7.9; Monocytes # (A) 1.3 k/uL (0-1.0); Monocytes % (A) 10 %; Neutrophils # (A) 10.1 k/uL (1.3-7.7); Neutrophils % (A) 77 %; Platelet Count 344 k/uL (150-450); RBC 3.87 m/uL (4.30-5.90); RDW 15.7 % (11.5-15.5); WBC 13.2 k/uL (3.8-10.6)
[2018-09-06 11:54] LABS: Albumin 3.6 g/dL (3.5-5.0); Potassium 4.8 mmol/L (3.5-5.1); Total Bilirubin 3.9 mg/dL (0.2-1.3); Total Protein 7.2 g/dL (6.3-8.2)
--- NOTE | 2018-09-06 13:53 | US ---
EXAMINATION TYPE: US abdomen limited DATE OF EXAM: 09/06/2018 COMPARISON: CT dated 08/12/2018 CLINICAL HISTORY: liver mets, elevated bili. EXAM MEASUREMENTS: Liver Length: 19.0 cm Gallbladder Wall: 0.3 cm CBD: 0.6 cm Right Kidney: 9.4 x 4.4 x 3.4 cm Pancreas: wnl Liver: multiple, solid masses throughout all liver lobes, enlarged Gallbladder: thickened wall; pericholecystic fluid noted Evidence for sonographic Sol's sign: no CBD: wnl Right Kidney: lateral mid cortical cyst = 2.8 x 1.9 x 2.6cm IMPRESSION: 1. Trace pericholecystic fluid and gallbladder wall thickening may be reactive to the adjacent hepato cellular disease as there are innumerable hepatic metastases. No common bile duct dilation nor focal right upper quadrant pain during the examination are seen. 2. Benign-appearing right renal cyst.
[2018-09-06 14:35] LABS: Amylase 100 U/L (30-110); Lipase 114 U/L (23-300)
[2018-09-06] MEDS ORDERED: NALOXONE 0.4 MG/ML 1 ML VIAL IV PRN (14:37)
[2018-09-06] MEDS ORDERED: HYDROmorphone 0.5 MG/0.5 ML SYRINGE IVP PRN (14:37)
[2018-09-06] MEDS: SODIUM CHLORIDE 0.9% 1,000 ML IV SCH ×2 (15:01→23:14)
[2018-09-06] MEDS ORDERED: ONDANSETRON 4 MG/2 ML VIAL IVP PRN (16:29)
[2018-09-06] MEDS ORDERED: ACETAMINOPHEN TAB 325 MG TAB PO PRN (16:29)
[2018-09-06] MEDS ORDERED: MELATONIN 3 MG TABLET PO PRN (16:29)
[2018-09-06] MEDS ORDERED: HYDROcodone/APAP 5-325MG 1 EACH TAB PO PRN (16:29)
[2018-09-06] MEDS ORDERED: MORPHINE ORAL SOLN 10 MG/5 ML CUP PO PRN (16:29)
--- NOTE | 2018-09-06 16:40 | P.HPIM ---
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 Patient was recently hospitalized here from 426 through 429 secondary to abdominal pain and diarrhea. At that point in time he underwent a colonoscopy and computed tomography scan. He was found have a large rectal mass +8 additional colon polyps. Biopsy came back with adenocarcinoma. He saw Dr. Smith in the office and was supposed to be started on oral chemotherapeutic agent in the next 3 days. On arrival to the ER his vital signs were within normal limits. Laboratory analysis showed an elevated white blood c ell count at 313.2, anemia with hemoglobin of 11, sodium 136, carbon dioxide 27 anion gap of 14, BUN 23, creatinine 1.15. He is on have markedly elevated liver enzymes with a total bilirubin of 3.9, AST 52, ALT 80, alk phos 561. He underwent abdominal ultrasound which showed gallbladder wall thickening likely reactive to adjacent hepatocellular disease as there are innumerable hepatic metastasis. He was started on IV fluids in the ER and arrangements were made for admission. Patient seen and examined at bedside in the ER with his daughter Gage present. He reports that since being discharged on August 15 appears had consistent profuse diarrhea. Today his diarrhea was so bad he could not even get off of the toilet. They report that it is usually a watery yellow consistency. It looks like feces. He has had both fecal and urinary incontinence for the last 1 month. His diarrhea had been occurring every time he ate but he was having some relief. Today it became so bad he could not even get off of the toilet. He denies any associated abdominal pain at rest. However when he is trying to have a bowel movement he reports pain across his lower abdomen and into his back encircling his hips. He had some nausea today but no vomiting. He reports that he has had burning with urination for the last 4 weeks. He also reports dark-colored urine. He feels generally weak all over, but has no focal weakness. He has not seen any dark tarry looking stools or bright red blood in the stools. When he saw Dr. Smith on the he prescribed Imodium which they has tried without any relief. He also reports a bitter taste in his mouth that clears when he drinks Gatorade. Review of Systems Pertinent positives and negatives as discussed in HPI, a complete review of systems was performed and all other systems are negative. Past Medical History Past Medical History: Hypertension Additional Past Medical History / Comment(s): shingles, metastatic adenocarcinoma of the colon with metastases to the liver History of Any Multi-Drug Resistant Organisms: None Reported Additional Past Surgical History / Comment(s): bilateral eye surgery, colonoscopy with biopsy Past Psychological History: No Psychological Hx Reported Smoking Status: Never smoker Past Alcohol Use History: Occasional Past Drug Use History: None Reported Additional History: Has been living with his daughter, uses a cane, refuses to use a walker, has home health care coming out along with palliative. - Past Family History Daughter(s) Family Medical History: No Reported History Medications and Allergies Home Medications Medication Instructions Recorded Confirmed Type amLODIPine [Norvasc] 5 mg PO DAILY #30 tab 08/15/18 09/06/18 Rx Loperamide HCl [Imodium A-D] 2 mg PO QID PRN 09/06/18 09/06/18 History Allergies Allergy/AdvReac Type Severity Reaction Status Date / Time No Known Allergies Allergy Verified 09/06/18 10:47 Physical Exam Osteopathic Statement: *. No significant issues noted on an osteopathic structural exam other than those noted in the History and Physical/Consult. Vitals: Vital Signs Temp Pulse Resp BP Pulse Ox 09/06/18 15:03 96.9 F L 18 100 09/06/18 14:17 84 16 146/86 100 09/06/18 10:37 97.5 F L 55 L 20 131/73 94 L Intake and Output 09/06/18 09/06/18 09/06/18 06:59 14:59 22:59 Other: Weight 61.235 kg General: ill appearing, no distress, appears at stated age, temporal wasting Derm: no unusual rashes/lesions no unusual ecchymoses, warm, dry Head: atraumatic, normocephalic, symmetric Eyes: EOMI, no lid lag, anicteric sclera, pupils equal round reactive to light ENT: Nose and ears atraumatic, no pharyngeal erythema Neck: No thyromegaly, no cervical lymphadenopathy, trachea midline, supple Mouth: no lip lesion, his membranes dry, + thrush, poor dentition with all teeth missing Cardiovascular: S1S2 reg, no murmur, positive posterior tibial pulse bilateral, no edema, capillary refill less than 2 seconds Lungs: CTA bilateral, no rhonchi, no rales , no accessory muscle use Abdominal: soft, nontender to palpation, no guarding, no appreciable organomegaly, normal bowel sounds Ext: no gross muscle atrophy, muscle strength 5 out of 5 in all 4 extremities grossly, no contractures, Neuro: CN II-XI grossly intact, light touch intact all 4 extremities, finger to nose within normal limits, Psych: Alert, oriented, appropriate affect Results CBC & Chem 7: 09/06/18 10:54 09/06/18 10:54 Labs: Abnormal Lab Results - Last 24 Hours (Table) 09/06/18 09/06/18 Range/Units 10:54 10:54 WBC 13.2 H (3.8-10.6) k/uL RBC 3.87 L (4.30-5.90) m/uL Hgb 11.0 L (13.0-17.5) gm/dL Hct 33.3 L (39.0-53.0) % RDW 15.7 H (11.5-15.5) % Neutrophils # 10.1 H (1.3-7.7) k/uL Monocytes # 1.3 H (0-1.0) k/uL Sodium 136 L (137-145) mmol/L Carbon Dioxide 20 L (22-30) mmol/L BUN 23 H (9-20) mg/dL Glucose 109 H (74-99) mg/dL Total Bilirubin 3.9 H (0.2-1.3) mg/dL AST 152 H (17-59) U/L ALT 80 H (21-72) U/L Alkaline Phosphatase 561 H (38-126) U/L US - abdomen: report reviewed Thrombosis Risk Factor Assmnt - DVT/VTE Prophylaxis DVT/VTE Prophylaxis: Pharmacologic Prophylaxis ordered Assessment and Plan Assessment: Intractable diarrhea likely related to metastatic adenocarcinoma of the rectum -Has failed outpatient treatment with Imodium. Start Lomotil and Questran. -Consult oncology -IV fluids -Full liquid diet -Pain control Clinical dehydration - IVF - monitor for signs for signs of improvement Thrush - nystatin swish and swallow Transaminitis secondary to metastatic disease -Worsening -Continue to trend Hypertension -Recently diagnosed last admission -Has not been taking Norvasc last 2 days his morning blood pressures have been 90/50 Anemia, normocytic - check B12, folate, and fe studies Leukocytosis - suspect reactive to stress - follow CBC - check C diff but doubt due to duration of Sx The patient is admitted with an anticipated greater than 2 midnight stay for evaluation of intractable diarrhea. DVT prophylaxis: Lovenox Discussed with: Patient, daughter Anticipated discharge date: 24-[address]: Home with home health and palliative A total of 60 minutes was spent on the care of this complex patient more than 50% of the time was spent in counseling and care coordination.
[2018-09-06] MEDS: CHOLESTYRAMINE (WITH SUGAR) 4 GM PACKET PO SCH (21:08)
[2018-09-06] MEDS: NYSTATIN 100,000 UNIT/ML SUSP 500,000 UNIT/5 ML CUP PO SCH ×2 (21:10→22:31)
[2018-09-06] MEDS: DIPHENOX-ATROP 2.5-0.025 MG 1 EACH TAB PO SCH ×2 (21:34→22:30)
[2018-09-07 02:03] VITALS: BMI 20.5
[2018-09-07] MEDS: NYSTATIN 100,000 UNIT/ML SUSP 500,000 UNIT/5 ML CUP PO SCH ×4 (08:44→22:10)
[2018-09-07] MEDS: CHOLESTYRAMINE (WITH SUGAR) 4 GM PACKET PO SCH ×3 (08:44→17:34)
[2018-09-07] MEDS: DIPHENOX-ATROP 2.5-0.025 MG 1 EACH TAB PO SCH ×4 (08:45→22:10)
[2018-09-07] MEDS: SODIUM CHLORIDE 0.9% 1,000 ML IV SCH ×2 (08:45→11:48)
[2018-09-07 09:10] LABS: HCT 31.5 % (39.0-53.0); HGB 10.4 gm/dL (13.0-17.5); MCH 28.7 pg (25.0-35.0); MCV 86.8 fL (80.0-100.0); Mean Platelet Volume 8.3; Platelet Count 359 k/uL (150-450); RBC 3.63 m/uL (4.30-5.90); RDW 15.5 % (11.5-15.5); WBC 13.1 k/uL (3.8-10.6)
[2018-09-07 09:27] LABS: ALT 65 U/L (21-72); AST 122 U/L (17-59); Albumin 3.1 g/dL (3.5-5.0); Alkaline Phosphatase 451 U/L (38-126); Anion Gap 9 mmol/L; Blood Urea Nitrogen 17 mg/dL (9-20); Calcium 8.5 mg/dL (8.4-10.2); Carbon Dioxide 24 mmol/L (22-30); Chloride 105 mmol/L (98-107); Magnesium 1.9 mg/dL (1.6-2.3); Potassium 4.5 mmol/L (3.5-5.1); Sodium 138 mmol/L (137-145); Total Bilirubin 3.7 mg/dL (0.2-1.3); Total Protein 6.5 g/dL (6.3-8.2)
[2018-09-07 09:34] LABS: Glucose 42 mg/dL (74-99)
[2018-09-07 10:10] LABS: Glucose,Whole Blood 109 mg/dL (75-99)
--- NOTE | 2018-09-07 11:03 | P.PN ---
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 Patient was recently hospitalized here from 08/12 through 08/15 secondary to abdominal pain and diarrhea. At that point in time he underwent a colonoscopy and computed tomography scan. He was found have a large rectal mass +8 additional colon polyps. Biopsy came back with adenocarcinoma. He saw Dr. Smith in the office and was supposed to be started on oral chemotherapeutic agent in the next 3 days. On arrival to the ER his vital signs were within normal limits. Laboratory analysis showed an elevated white blood cell count at 13.2, anemia with hemoglobin of 11, sodium 136, carbon dioxide 27 anion gap of 14, BUN 23, creatinine 1.15. He is on have markedly elevated liver enzymes with a total bilirubin of 3.9, AST 52, ALT 80, alk phos 561. He underwent abdominal ultrasound which showed gallbladder wall thickening likely reactive to adjacent hepatocellular disease as there are innumerable hepatic metastasis. He was started on IV fluids in the ER and arrangements were made for admission. He remained nothing by mouth overnight. He was started on Lomotil and Questran to help with his diarrhea. Oncology was consulted. On 09/07 his liver enzymes had improved slightly. Patient seen and examined at bedside. He states his diarrhea was much improved last night he only had 2 bowel movements. He had no other complaints currently. He denies any chest pain, shortness breath, nausea, vomiting, abdominal pain, lower extremity edema. He did state he wanted to Dr. Smith we discussed yesterday as far as CODE STATUS. Objective - Vital Signs Vital signs: Vital Signs Temp 98.3 F 09/07/18 04:24 Pulse 69 09/07/18 04:24 Resp 16 09/07/18 04:24 BP 125/54 09/07/18 04:24 Pulse Ox 99 09/07/18 04:24 Intake & Output 09/06/18 09/07/18 09/07/18 18:59 06:59 18:59 Weight 61.235 kg Other: Voiding Method Toilet Urinal # Voids 2 # Bowel Movements 1 - Exam General: Chronically ill-appearing, no distress, appears at stated age, cachectic with temporal wasting Derm: warm, dry Head: atraumatic, normocephalic, symmetric Eyes: EOMI, no lid lag, anicteric sclera Mouth: no lip lesion, mucus membranes moist Cardiovascular: S1S2 reg, no murmur, positive posterior tibial pulse bilateral, Lungs: Decreased breath sounds bilateral, no rhonchi, no rales , no accessory muscle use Abdominal: soft, nontender to palpation, no guarding, no appreciable organomega ly Ext: + gross muscle atrophy, no edema, no contractures Neuro: CN II-XI grossly intact, no focal neuro deficits Psych: Alert, oriented, appropriate affect - Labs CBC & Chem 7: 09/07/18 07:59 09/07/18 07:59 Labs: Abnormal Lab Results - Last 24 Hours (Table) 09/06/18 09/06/18 09/07/18 Range/Units 10:54 10:54 07:59 WBC 13.2 H 13.1 H (3.8-10.6) k/uL RBC 3.87 L 3.63 L (4.30-5.90) m/uL Hgb 11.0 L 10.4 L (13.0-17.5) gm/dL Hct 33.3 L 31.5 L (39.0-53.0) % RDW 15.7 H (11.5-15.5) % Neutrophils # 10.1 H (1.3-7.7) k/uL Monocytes # 1.3 H (0-1.0) k/uL Sodium 136 L (137-145) mmol/L Carbon Dioxide 20 L (22-30) mmol/L BUN 23 H (9-20) mg/dL Glucose 109 H (74-99) mg/dL POC Glucose (mg/dL) (75-99) mg/dL Total Bilirubin 3.9 H (0.2-1.3) mg/dL AST 152 H (17-59) U/L ALT 80 H (21-72) U/L Alkaline Phosphatase 561 H (38-126) U/L Albumin (3.5-5.0) g/dL 09/07/18 09/07/18 Range/Units 07:59 10:08 WBC (3.8-10.6) k/uL RBC (4.30-5.90) m/uL Hgb (13.0-17.5) gm/dL Hct (39.0-53.0) % RDW (11.5-15.5) % Neutrophils # (1.3-7.7) k/uL Monocytes # (0-1.0) k/uL Sodium (137-145) mmol/L Carbon Dioxide (22-30) mmol/L BUN (9-20) mg/dL Glucose 42 L* (74-99) mg/dL POC Glucose (mg/dL) 109 H (75-99) mg/dL Total Bilirubin 3.7 H (0.2-1.3) mg/dL AST 122 H (17-59) U/L ALT (21-72) U/L Alkaline Phosphatase 451 H (38-126) U/L Albumin 3.1 L (3.5-5.0) g/dL Assessment and Plan Assessment: Intractable diarrhea likely related to metastatic adenocarcinoma of the rectum -Has failed outpatient treatment with Imodium. Continue Lomotil and Questran. -Await oncology consult -IV fluids -Full liquid diet -Pain control Clinical dehydration, improved - IVF decreased - monitor for signs for signs of improvement Thrush - nystatin swish and swallow Transaminitis secondary to metastatic disease -Continue to trend Hypertension -Recently diagnosed last admission -Has not been taking Norvasc last 2 days his morning blood pressures have been 90/50, continue to monitor BP to see if needed Anemia, normocytic - await B12, folate, and fe studies Leukocytosis - suspect reactive to stress - follow CBC -C diff negative DVT prophylaxis: Lovenox Discussed with: Patient, daughter Anticipated discharge date: [address]: Home with home health and palliative A total of 35 minutes was spent on the care of this complex patient more than 50% of the time was spent in counseling and care coordination.
--- NOTE | 2018-09-07 11:17 | P.CONS ---
History of Present Illness - Reason for Consult Consult date: 09/07/18 Colon adenocarcinoma Requesting physician: Emilia Ortiz - Chief Complaint Nausea, vomiting, diarrhea - History of Present Illness Mr. Shane is a very pleasant 88-year-old -[place] male who has not been to a physician for most of his life, until the last month. On 08/12/2018 he presented to the emergency department with complaints of vomiting, blood in the stool and diarrhea, had been lower abdominal pain 1 month, 40 pound weight loss over the last year, sweats so bad that he had to change as clothes, decreased energy levels over the last few weeks as well. He had CT of the abdomen and pelvis revealing a rectal mass with multiple liver lesions. He had colonoscopy with Dr. Hebert, 8 polyps were snared, tubular adenomas, rectal mass biopsy did show adenocarcinoma. Patient was recently seen by Dr. Smith with his daughter, they agreed to trying oral capcetabine as this was felt to be an easier treatment to tolerate due to poor performance status. Pt has not started due to persistent diarrhea, this was attempting to be managed outpatient, unfortunately the diarrhea has persisted and progressed, pt is symptomatic with weakness, dehydration. Hemoglobin has dropped to 10.4, bilirubin increased to 3.7, elevated alk phos. Stool studies are negative for C. diff. Patient has been started on aggressive antidiarrheal management. Patient denied fevers, chills, vomiting, he has had 2 stools this a.m., denies black or bloody stool, no unusual abdominal pain, cramping or bloating. The patient reported cancer in both brothers and sister but not sure what kind. Review of Systems 14 point review of systems is negative except as stated in HPI Past Medical History Past Medical History: Cancer, Hypertension Additional Past Medical History / Comment(s): shingles, metastatic adenocarcinoma of the colon with metastases to the liver History of Any Multi-Drug Resistant Organisms: None Reported Past Surgical History: No Surgical Hx Reported Additional Past Surgical History / Comment(s): bilateral eye surgery, colonoscopy with biopsy Past Psychological History: No Psychological Hx Reported Smoking Status: Never smoker Past Alcohol Use History: Occasional Past Drug Use History: None Reported - Past Family History Daughter(s) Family Medical History: No Reported History Medications and Allergies Home Medications Medication Instructions Recorded Confirmed Type amLODIPine [Norvasc] 5 mg PO DAILY #30 tab 08/15/18 09/06/18 Rx Loperamide HCl [Imodium A-D] 2 mg PO QID PRN 09/06/18 09/06/18 History Allergies Allergy/AdvReac Type Severity Reaction Status Date / Time No Known Allergies Allergy Verified 09/06/18 10:47 Physical Exam Vitals: Vital Signs Temp Pulse Pulse Resp BP BP Pulse Ox 09/07/18 04:24 98.3 F 69 16 125/54 99 09/07/18 01:33 97.6 F 72 16 161/76 100 09/07/18 00:43 97.5 F L 80 18 156/88 99 09/06/18 23:19 98.1 F 78 18 159/86 98 09/06/18 21:11 97.9 F 87 18 168/90 98 09/06/18 18:51 98.0 F 84 18 139/82 100 09/06/18 17:29 76 18 151/80 98 09/06/18 16:18 75 16 150/81 99 09/06/18 15:03 96.9 F L 18 100 09/06/18 14:17 84 16 146/86 100 Intake and Output 09/06/18 09/07/18 09/07/18 22:59 06:59 14:59 Other: Voiding Method Toilet Urinal # Voids 1 2 # Bowel Movements 1 - Constitutional General appearance: cooperative, no acute distress, thin - EENT Eyes: anicteric sclerae, EOMI, normal appearance ENT: no hard of hearing, hearing grossly normal, no NA/AT, normal oropharynx, no other, no pharyngeal erythema, no thrush, no tonsillar exudates, no tonsillar swelling - Neck Neck: no lymphadenopathy - Respiratory Respiratory: bilateral: CTA - Cardiovascular Rhythm: regular Heart sounds: normal: S1, S2 Abnormal Heart Sounds: no systolic murmur, no diastolic murmur, no rub, no S3 Gallop, no S4 Gallop, no click, no other leg Peripheral Edema: bilateral: None - Gastrointestinal General gastrointestinal: no absent bowel sounds, no decreased bowel sounds, no distended, no hepatomegaly, no hyperactive bowel sounds, normal bowel sounds, no organomegaly, no rigid, scaphoid, soft, no splenomegaly, tenderness, no umbilical hernia, no ventral hernia - Integumentary Integumentary: normal - Neurologic Neurologic: CNII-XII intact - Musculoskeletal Musculoskeletal: generalized weakness, strength equal bilaterally - Psychiatric Psychiatric: A&O x's 3, appropriate affect, intact judgment & insight Results CBC & Chem 7: 09/07/18 07:59 09/07/18 07:59 Labs: Abnormal Lab Results - Last 24 Hours (Table) 09/06/18 09/06/18 09/07/18 Range/Units 10:54 10:54 07:59 WBC 13.2 H 13.1 H (3.8-10.6) k/uL RBC 3.87 L 3.63 L (4.30-5.90) m/uL Hgb 11.0 L 10.4 L (13.0-17.5) gm/dL Hct 33.3 L 31.5 L (39.0-53.0) % RDW 15.7 H (11.5-15.5) % Neutrophils # 10.1 H (1.3-7.7) k/uL Monocytes # 1.3 H (0-1.0) k/uL Sodium 136 L (137-145) mmol/L Carbon Dioxide 20 L (22-30) mmol/L BUN 23 H (9-20) mg/dL Glucose 109 H (74-99) mg/dL POC Glucose (mg/dL) (75-99) mg/dL Total Bilirubin 3.9 H (0.2-1.3) mg/dL AST 152 H (17-59) U/L ALT 80 H (21-72) U/L Alkaline Phosphatase 561 H (38-126) U/L Albumin (3.5-5.0) g/dL 09/07/18 09/07/18 Range/Units 07:59 10:08 WBC (3.8-10.6) k/uL RBC (4.30-5.90) m/uL Hgb (13.0-17.5) gm/dL Hct (39.0-53.0) % RDW (11.5-15.5) % Neutrophils # (1.3-7.7) k/uL Monocytes # (0-1.0) k/uL Sodium (137-145) mmol/L Carbon Dioxide (22-30) mmol/L BUN (9-20) mg/dL Glucose 42 L* (74-99) mg/dL POC Glucose (mg/dL) 109 H (75-99) mg/dL Total Bilirubin 3.7 H (0.2-1.3) mg/dL AST 122 H (17-59) U/L ALT (21-72) U/L Alkaline Phosphatase 451 H (38-126) U/L Albumin 3.1 L (3.5-5.0) g/dL US - abdomen: report reviewed Assessment and Plan (1) Colon adenocarcinoma Narrative/Plan: Recent diagnosis, metastatic to the liver. Dr. Smith has met with the patient and his daughter. Plan was to begin oral Xeloda once patient had the opportunity to treat persistent diarrhea but, unfortunately outpatient management was unsuccessful. Patient is now admitted for the same. C. diff is negative. Aggressive antidiarrheal treatment has begun. Patient would still like to attempt treatment for cancer. He was encouraged to discuss with his daughter and to consider quality versus quantity of life. Case was discussed with internal medicine. Palliative care was discussed as an option. We will encourage this as well with patient and daughter. Current Visit: Yes Status: Acute Priority: High Code(s): C18.9 - MALIGNANT NEOPLASM OF COLON, UNSPECIFIED SNOMED Code(s): 076613128 (2) Anemia Narrative/Plan: Related to malignancy. Not severe, no acute intervention is needed. On chart nabeel renteria no recent iron studies, will order. Current Visit: Yes Status: Acute Priority: Medium Code(s): D64.9 - ANEMIA, UNSPECIFIED SNOMED Code(s): 794776769 Plan: Doctor attests: I performed a history and physical examination of this patient with dictator. I developed impression and plan, agree with dictators note, documented as a scribe.
[2018-09-07 16:19] LABS: Iron Saturation 14.36 (15.00-50.00)
[2018-09-07 16:26] LABS: Folate, Serum 10.7 ng/mL
[2018-09-08] MEDS: SODIUM CHLORIDE 0.9% 1,000 ML IV SCH ×2 (02:00→09:35)
[2018-09-08 02:58] LABS: Glucose,Whole Blood 76 mg/dL (75-99)
[2018-09-08] MEDS: NYSTATIN 100,000 UNIT/ML SUSP 500,000 UNIT/5 ML CUP PO SCH ×4 (09:35→21:00)
[2018-09-08] MEDS: DIPHENOX-ATROP 2.5-0.025 MG 1 EACH TAB PO SCH ×4 (09:35→22:52)
[2018-09-08] MEDS: CHOLESTYRAMINE (WITH SUGAR) 4 GM PACKET PO SCH ×3 (09:35→17:36)
[2018-09-08 09:42] LABS: ALT 69 U/L (21-72); AST 156 U/L (17-59); Alkaline Phosphatase 453 U/L (38-126); Anion Gap 10 mmol/L; Blood Urea Nitrogen 12 mg/dL (9-20); Calcium 8.5 mg/dL (8.4-10.2); Carbon Dioxide 22 mmol/L (22-30); Chloride 104 mmol/L (98-107); Glucose 74 mg/dL (74-99); Magnesium 1.8 mg/dL (1.6-2.3); Potassium 4.3 mmol/L (3.5-5.1); Sodium 136 mmol/L (137-145); Total Bilirubin 4.3 mg/dL (0.2-1.3); Total Protein 6.4 g/dL (6.3-8.2)
--- NOTE | 2018-09-08 12:51 | P.PN ---
Subjective Progress Note Date: 09/08/18 The patient looks better. He states that diarrhea has improved. He had 2 bowel movements at about 3 AM this morning, but none since. He feels hungry. No nausea or vomiting. No significant abdominal cramps. Objective - Vital Signs Vital signs: Vital Signs Temp 97.9 F 09/08/18 05:00 Pulse 94 09/08/18 05:00 Resp 16 09/08/18 05:00 BP 118/59 09/08/18 05:00 Pulse Ox 97 09/08/18 05:00 Intake & Output 09/07/18 09/08/18 09/08/18 18:59 06:59 18:59 Output Total 200 Balance -200 Weight 61.235 kg Output: Urine 200 Other: Voiding Method Toilet Urinal # Voids 5 3 # Bowel Movements 1 2 1 - Constitutional General appearance: Present: no acute distress - EENT Eyes: Present: EOMI ENT: Present: hearing grossly normal, normal oropharynx - Respiratory Respiratory: bilateral: CTA - Cardiovascular Rhythm: regular Heart sounds: normal: S1, S2 - Gastrointestinal General gastrointestinal: Present: normal bowel sounds, soft - Integumentary Integumentary: Present: normal - Neurologic Neurologic: Present: CNII-XII intact - Musculoskeletal Musculoskeletal: Present: generalized weakness, strength equal bilaterally - Labs CBC & Chem 7: 09/07/18 07:59 09/08/18 08:48 Labs: Abnormal Lab Results - Last 24 Hours (Table) 09/07/18 09/08/18 Range/Units 07:59 08:48 Sodium 136 L (137-145) mmol/L Creatinine 0.64 L (0.66-1.25) mg/dL Iron 27 L (65-175) ug/dL TIBC 188 L (228-460) ug/dL Iron Saturation 14.36 L (15.00-50.00) Ferritin 1093.4 H (22.0-322.0) ng/mL Total Bilirubin 4.3 H (0.2-1.3) mg/dL AST 156 H (17-59) U/L Alkaline Phosphatase 453 H (38-126) U/L Albumin 3.0 L (3.5-5.0) g/dL Vitamin B12 1497.0 H (200.0-944.0) pg/mL Assessment and Plan (1) Diarrhea Narrative/Plan: Due to the primary tumor. This is improved with aggressive antidiarrheals. Agree with current regimen of Lomotil and cholestyramine. If the patient's diarrhea continues to be controlled, he can be discharged on the above regimen from our standpoint, by the admitting service whenever felt to be appropriate by them. Current Visit: Yes Status: Acute Code(s): R19.7 - DIARRHEA, UNSPECIFIED SNOMED Code(s): 21941094 (2) Dehydration Narrative/Plan: Improved with IV hydration. Secondary to above Current Visit: No Status: Acute Code(s): E86.0 - DEHYDRATION SNOMED Code(s ): 68735578 (3) Colon adenocarcinoma Narrative/Plan: Assuming that the patient is able to be discharged today, he has chemotherapy teaching for Xeloda scheduled in the office tomorrow. Current Visit: Yes Status: Acute Priority: High Code(s): C18.9 - MALIGNANT NEOPLASM OF COLON, UNSPECIFIED SNOMED Code(s): 855832221
--- NOTE | 2018-09-08 18:46 | P.PN ---
Subjective Progress Note Date: 09/08/18 Patient denies any abdominal pain nausea or vomiting, previously reported to watery stools however the nurses reporting that the patient has had up to 10 episodes today. Objective - Vital Signs Vital signs: Vital Signs Temp 97.3 F L 09/08/18 12:58 Pulse 94 09/08/18 12:58 Resp 17 09/08/18 12:58 BP 150/77 09/08/18 12:58 Pulse Ox 97 09/08/18 12:58 Intake & Output 09/07/18 09/08/18 09/08/18 18:59 06:59 18:59 Intake Total 1160 Output Total 200 Balance 960 Weight 61.235 kg Intake: Oral 1160 Output: Urine 200 Other: Voiding Method Toilet Urinal # Voids 5 3 # Bowel Movements 1 2 3 - Exam Constitutional: No acute distress, conversant, pleasant Eyes: Anicteric sclerae, moist conjunctiva, no lid-lag, PERRLA ENMT: NC/AT,Oropharynx clear, no erythema, exudates Neck:Supple, FROM, no masses, or JVD, No carotid bruits; No thyromegaly Lungs: Clear to auscultation, Clear to percussion, Normal respiratory effort, no accessory muscle use Cardiovascular: Heart regular in rate and rhythm, No murmurs, gallops, or rubs no peripheral edema Abdominal: Soft Nontender, nom distended, no guarding, no rebound or rigidity, Normoactive bowel sounds No hepatomegaly, No splenomegaly, No palpable mass No abdominal wall hernia noted Skin: Normal temperature, tone, texture, turgor, No induration No subcutaneous nodules, No rash, lesions, No ulcers Extremities:No digital cyanosis No clubbing, Pedal pulses intact and symmetrical Radial pulses intact and symmetrical Normal gait and station, No calf tenderness Psychiatric: Alert and oriented to person, place and time, Appropriate affect Intact judgement Neuro: Muscles Strength 5/5 in all 4 extremities, Sensation to light touch grossly present throughout, Cranial nerves II-XII grossly intact. No focal sensory deficits - Labs CBC & Chem 7: 09/07/18 07:59 09/08/18 08:48 Labs: Abnormal Lab Results - Last 24 Hours (Table) 09/08/18 Range/Units 08:48 Sodium 136 L (137-145) mmol/L Creatinine 0.64 L (0.66-1.25) mg/dL Total Bilirubin 4.3 H (0.2-1.3) mg/dL AST 156 H (17-59) U/L Alkaline Phosphatase 453 H (38-126) U/L Albumin 3.0 L (3.5-5.0) g/dL Assessment and Plan Plan: Intractable diarrhea likely related to metastatic adenocarcinoma of the rectum -Has failed outpatient treatment with Imodium. Start Lomotil and Questran. -Consult oncology -IV fluids -Full liquid diet -Pain control Clinical dehydration - IVF - monitor for signs for signs of improvement Thrush - nystatin swish and swallow Transaminitis secondary to metastatic disease -Worsening -Continue to trend Hypertension -Recently diagnosed last admission -Has not been taking Norvasc last 2 days his morning blood pressures have been 90/50 Anemia, normocytic - check B12, folate, and fe studies Leukocytosis - suspect reactive to stress - follow CBC - check C diff but doubt due to duration of Sx
[2018-09-08] MEDS: LOPERAMIDE 2 MG CAP PO PRN (19:52)
[2018-09-09] MEDS: SODIUM CHLORIDE 0.9% 1,000 ML IV SCH ×2 (03:59→11:15)
[2018-09-09] MEDS: DIPHENOX-ATROP 2.5-0.025 MG 1 EACH TAB PO SCH ×4 (08:02→20:35)
[2018-09-09] MEDS: NYSTATIN 100,000 UNIT/ML SUSP 500,000 UNIT/5 ML CUP PO SCH ×4 (08:02→20:36)
[2018-09-09] MEDS: CHOLESTYRAMINE (WITH SUGAR) 4 GM PACKET PO SCH ×3 (08:02→20:35)
[2018-09-09] MEDS: amLODIPine 5 MG TAB PO SCH (08:47)
[2018-09-09] MEDS: LOPERAMIDE 2 MG CAP PO PRN (17:14)
--- NOTE | 2018-09-09 18:29 | P.PN ---
Subjective Progress Note Date: 09/09/18 Patient denies any abdominal pain nausea or vomiting, continues to have loose stools watery. No acute events overngiht Objective - Vital Signs Vital signs: Vital Signs Temp 97.4 F L 09/09/18 13:00 Pulse 91 09/09/18 14:26 Resp 18 09/09/18 14:26 BP 123/70 09/09/18 13:00 Pulse Ox 97 09/09/18 13:00 Intake & Output 09/08/18 09/09/18 09/09/18 18:59 06:59 18:59 Intake Total 1160 1600 1230 Output Total 200 650 300 Balance 960 950 930 Weight 61.235 kg Intake: Intake, IV Titration 900 650 Amount Sodium Chloride 0.9% 1, 900 650 000 ml @ 75 mls/hr IV . [id number] SELVIN Rx#:[id number] Oral 1160 700 580 Output: Urine 200 650 300 Other: Voiding Method Toilet Toilet Urinal # Voids 2 4 # Bowel Movements 3 3 4 - Exam Constitutional: No acute distress, conversant, pleasant Eyes: Anicteric sclerae, moist conjunctiva, no lid-lag, PERRLA ENMT: NC/AT,Oropharynx clear, no erythema, exudates Neck:Supple, FROM, no masses, or JVD, No carotid bruits; No thyromegaly Lungs: Clear to auscultation, Clear to percussion, Normal respiratory effort, no accessory muscle use Cardiovascular: Heart regular in rate and rhythm, No murmurs, gallops, or rubs no peripheral edema Abdominal: Soft Nontender, nom distended, no guarding, no rebound or rigidity, Normoactive bowel sounds No hepatomegaly, No splenomegaly, No palpable mass No abdominal wall hernia noted Skin: Normal temperature, tone, texture, turgor, No induration No subcutaneous nodules, No rash, lesions, No ulcers Extremities:No digital cyanosis No clubbing, Pedal pulses intact and symmetrical Radial pulses intact and symmetrical Normal gait and station, No calf tenderness Psychiatric: Alert and oriented to person, place and time, Appropriate affect Intact judgement Neuro: Muscles Strength 5/5 in all 4 extremities, Sensation to light touch grossly present throughout, Cranial nerves II-XII grossly intact. No focal sensory deficits - Labs CBC & Chem 7: 09/07/18 07:59 09/08/18 08:48 Labs: Abnormal Lab Results - Last 24 Hours (Table) 09/08/18 Range/Units 08:48 RBC Folate 794 H (280 - 791) ng/mL Assessment and Plan Plan: Intractable diarrhea likely related to metastatic adenocarcinoma of the rectum -Has failed outpatient treatment with Imodium. Continue Lomotil and Questran but will also add octreotide to regimen -Consult oncology -IV fluids -Full liquid diet -Pain control Clinical dehydration - IVF - monitor for signs for signs of improvement Thrush - nystatin swish and swallow Transaminitis secondary to metastatic disease -Worsening -Continue to trend Hypertension -Recently diagnosed last admission -Has not been taking Norvasc last 2 days his morning blood pressures have been 9 0/50 Anemia, normocytic - check B12, folate, and fe studies Leukocytosis - suspect reactive to stress - follow CBC - check C diff but doubt due to duration of Sx
[2018-09-09] MEDS: OCTREOTIDE 100 MCG/ML INJ SQ SCH ×2 (19:02→23:01)
[2018-09-10] MEDS: LOPERAMIDE 2 MG CAP PO PRN (09:46)
[2018-09-10] MEDS: CHOLESTYRAMINE (WITH SUGAR) 4 GM PACKET PO SCH ×3 (09:46→17:44)
[2018-09-10] MEDS: DIPHENOX-ATROP 2.5-0.025 MG 1 EACH TAB PO SCH ×4 (09:46→21:33)
[2018-09-10] MEDS: amLODIPine 5 MG TAB PO SCH (09:46)
[2018-09-10] MEDS: NYSTATIN 100,000 UNIT/ML SUSP 500,000 UNIT/5 ML CUP PO SCH ×4 (09:47→21:33)
[2018-09-10] MEDS: OCTREOTIDE 100 MCG/ML INJ SQ SCH ×2 (10:28→17:48)
--- NOTE | 2018-09-10 11:08 | P.DS ---
Providers Date of admission: 09/10/18 00:58 Expected date of discharge: 09/10/18 Attending physician: Felix Reese MD Consults: 09/06/18 16:33 Consult Physician Routine Consulting Provider: Antony Smith Consult Reason/Comments: rectal cancer Do you want consulting provider notified?: Yes Primary care physician: Yahir De Dios - Discharge Diagnosis(es) (1) Diarrhea Current Visit: Yes Status: Acute (2) Dehydration Current Visit: No Status: Acute (3) Colon adenocarcinoma Current Visit: Yes Status: Acute Priority: High (4) Anemia Current Visit: Yes Status: Acute Priority: Medium Hospital Course: The patient is a 88-year-old -[place] male that was admitted for persistent diarrhea attributed to his underlying colonic adenocarcinoma, the patient was admitted for dehydration and weakness. The patient had previously been seen by Dr. Smith with his daughter present and had previously agreed to try oral capcetabine as this was felt to be an easier treatment to tolerate due to poor performance status. Unfortunately the patient has not started due to persistent diarrhea that they were attempting to control on the outpatient basis with Lomotil. Stool studies done here were negative for C. diff, patient was started on Questran, Lomotil and loperamide and octreotide with some improvement of his symptoms. Patient was noted to have an anemia with a hemoglobin of 10.4 which was related to his underlying malignancy. Improvement of his diarrhea the patient was sent home in stable condition this discharge process took approximately 30 minutes. Focused exam GI: Nonacute abdomen, soft nontender nondistended Patient Condition at Discharge: Fair Plan - Discharge Summary New Discharge Prescriptions: New Diphenox-Atrop 2.5-0.025 mg [Lomotil] 1 each PO QID #60 tab Cholestyramine (with Sugar) [Questran Packet] 4 gm PO TID BETWEEN MEALS 30 Days #90 packet Continue amLODIPine [Norvasc] 5 mg PO DAILY #30 tab Loperamide HCl [Imodium A-D] 2 mg PO QID PRN PRN Reason: Diarrhea Discharge Medication List amLODIPine [Norvasc] 5 mg PO DAILY #30 tab 08/15/18 [Rx] Loperamide HCl [Imodium A-D] 2 mg PO QID PRN 09/06/18 [History] Cholestyramine (with Sugar) [Questran Packet] 4 gm PO TID BETWEEN MEALS 30 Days #90 packet 09/10/18 [Rx] Diphenox-Atrop 2.5-0.025 mg [Lomotil] 1 each PO QID #60 tab 09/10/18 [Rx] Follow up Appointment(s)/Referral(s): Yahir De Dios MD [Primary Care Provider] - 1-2 days (Patient to call Dr. De Dios's office Wednesday to schedule follow up appointment. The office is closed at time of discharge.) Patient Instructions/Handouts: Diphenoxylate/Atropine (By mouth), Cholestyramine (By mouth), Anemia (DC), Jaundice (DC) Discharge Disposition: HOME SELF-CARE
[2018-09-10] MEDS: SODIUM CHLORIDE 0.9% 1,000 ML IV SCH ×2 (17:55→19:26)
[2018-09-11] MEDS: OCTREOTIDE 100 MCG/ML INJ SQ SCH ×4 (00:10→23:45)
[2018-09-11] MEDS: amLODIPine 5 MG TAB PO SCH ×2 (08:33→08:54)
[2018-09-11] MEDS: NYSTATIN 100,000 UNIT/ML SUSP 500,000 UNIT/5 ML CUP PO SCH ×4 (08:34→21:54)
[2018-09-11] MEDS: DIPHENOX-ATROP 2.5-0.025 MG 1 EACH TAB PO SCH ×4 (08:34→21:54)
[2018-09-11] MEDS: CHOLESTYRAMINE (WITH SUGAR) 4 GM PACKET PO SCH ×3 (08:36→18:05)
--- NOTE | 2018-09-11 11:02 | P.PN ---
Subjective Progress Note Date: 09/11/18 Patient denies any abdominal pain nausea or vomiting, watery stools have slowed significantly no having more form. The patient ready for discharge Objective - Vital Signs Vital signs: Vital Signs Temp 98.0 F 09/11/18 05:20 Pulse 86 09/11/18 05:20 Resp 18 09/11/18 05:20 BP 98/56 09/11/18 05:20 Pulse Ox 99 09/11/18 05:20 Intake & Output 09/10/18 09/11/18 09/11/18 18:59 06:59 18:59 Output Total 1 150 Balance -1 -150 Output: Urine 150 Stool 1 Other: Voiding Method Toilet Urinal # Voids 1 3 # Bowel Movements 1 1 - Exam Constitutional: No acute distress, conversant, pleasant Eyes: Anicteric sclerae, moist conjunctiva, no lid-lag, PERRLA ENMT: NC/AT,Oropharynx clear, no erythema, exudates Neck:Supple, FROM, no masses, or JVD, No carotid bruits; No thyromegaly Lungs: Clear to auscultation, Clear to percussion, Normal respiratory effort, no accessory muscle use Cardiovascular: Heart regular in rate and rhythm, No murmurs, gallops, or rubs no peripheral edema Abdominal: Soft Nontender, nom distended, no guarding, no rebound or rigidity, Normoactive bowel sounds No hepatomegaly, No splenomegaly, No palpable mass No abdominal wall hernia noted Skin: Normal temperature, tone, texture, turgor, No induration No subcutaneous nodules, No rash, lesions, No ulcers Extremities:No digital cyanosis No clubbing, Pedal pulses intact and symmetrical Radial pulses intact and symmetrical Normal gait and station, No calf tenderness Psychiatric: Alert and oriented to person, place and time, Appropriate affect Intact judgement Neuro: Muscles Strength 5/5 in all 4 extremities, Sensation to light touch justin sly present throughout, Cranial nerves II-XII grossly intact. 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 Continue Lomotil and Questran but will also add octreotide to regimen -Consult oncology -IV fluids -Full liquid diet -Pain control Clinical dehydration - IVF - monitor for signs for signs of improvement Thrush - nystatin swish and swallow Transaminitis secondary to metastatic disease - Hypertension -Recently diagnosed last admission -Has not been taking Norvasc last 2 days his morning blood pressures have been 90/50 Anemia, normocytic - check B12, folate, and fe studies Leukocytosis - suspect reactive to stress - Patient afebrileand of infection Disposition * Patient's diarrhea resolving ready for discharge however daughter is unable to care for patient at home and would like placement, patient's daughter found private facility for her father in [place] but the patient is unwilling to go to [place] as it's too far * We'll contact case management regarding placement for the patient locally
--- NOTE | 2018-09-11 11:34 | P.PN ---
Subjective Progress Note Date: 09/11/18 Patient denies any abdominal pain nausea or vomiting, watery stools have slowed significantly no having more form only had one BM today. The patient ready for discharge Objective - Vital Signs Vital signs: Vital Signs Temp 98.0 F 09/11/18 05:20 Pulse 86 09/11/18 05:20 Resp 18 09/11/18 05:20 BP 98/56 09/11/18 05:20 Pulse Ox 99 09/11/18 05:20 Intake & Output 09/10/18 09/11/18 09/11/18 18:59 06:59 18:59 Output Total 1 150 Balance -1 -150 Output: Urine 150 Stool 1 Other: Voiding Method Toilet Urinal # Voids 1 3 # Bowel Movements 1 1 - Exam Constitutional: No acute distress, conversant, pleasant Eyes: Anicteric sclerae, moist conjunctiva, no lid-lag, PERRLA ENMT: NC/AT,Oropharynx clear, no erythema, exudates Neck:Supple, FROM, no masses, or JVD, No carotid bruits; No thyromegaly Lungs: Clear to auscultation, Clear to percussion, Normal respiratory effort, no accessory muscle use Cardiovascular: Heart regular in rate and rhythm, No murmurs, gallops, or rubs no peripheral edema Abdominal: Soft Nontender, nom distended, no guarding, no rebound or rigidity, Normoactive bowel sounds No hepatomegaly, No splenomegaly, No palpable mass No abdominal wall hernia noted Skin: Normal temperature, tone, texture, turgor, No induration No subcutaneous nodules, No rash, lesions, No ulcers Extremities:No digital cyanosis No clubbing, Pedal pulses intact and symmetrical Radial pulses intact and symmetrical Normal gait and station, No calf tenderness Psychiatric: Alert and oriented to person, place and time, Appropriate affect Intact judgement Neuro: Muscles Strength 5/5 in all 4 extremities, Sensation to light touch grossly present throughout, Cranial nerves II-XII grossly intact. 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 Continue Lomotil and Questran but will also add octreotide to regimen -Appreciate cardiology recommendations -d/c IVF -Full liquid diet -Pain control Clinical dehydration - IVF - monitor for signs for signs of improvement Thrush - nystatin swish and swallow Transaminitis secondary to metastatic disease - Hypertension -Recently diagnosed last admission -Has not been taking Norvasc last 2 days his morning blood pressures have been 90/50 Anemia, normocytic - check B12, folate, and fe studies Leukocytosis - suspect reactive to stress - Patient afebrileand of infection Disposition * Patient's diarrhea resolving ready for discharge however daughter is unable to care for patient at home and would like placement, patient's daughter found private facility for her father in [place] but the patient is unwilling to go to [place] as it's too far * We'll contact case management regarding placement for the patient locally
[2018-09-11] MEDS: SODIUM CHLORIDE 0.9% 1,000 ML IV SCH ×2 (21:53→21:55)
[2018-09-12] MEDS: CHOLESTYRAMINE (WITH SUGAR) 4 GM PACKET PO SCH ×3 (08:32→17:53)
[2018-09-12] MEDS: NYSTATIN 100,000 UNIT/ML SUSP 500,000 UNIT/5 ML CUP PO SCH ×4 (08:32→21:07)
[2018-09-12] MEDS: amLODIPine 5 MG TAB PO SCH (08:32)
[2018-09-12] MEDS: OCTREOTIDE 100 MCG/ML INJ SQ SCH ×2 (08:33→17:09)
[2018-09-12] MEDS: DIPHENOX-ATROP 2.5-0.025 MG 1 EACH TAB PO SCH ×4 (08:33→21:07)
[2018-09-12] MEDS: SODIUM CHLORIDE 0.9% 1,000 ML IV SCH (11:19)
--- NOTE | 2018-09-12 13:21 | P.PN ---
Subjective Progress Note Date: 09/12/18 Patient denies any abdominal pain nausea or vomiting, watery stools have slowed significantly no having more form only had two BM today. The patient ready for discharge Objective - Vital Signs Vital signs: Vital Signs Temp 97.3 F L 09/12/18 11:53 Pulse 88 09/12/18 11:53 Resp 16 09/12/18 11:53 BP 149/70 09/12/18 11:53 Pulse Ox 98 09/12/18 11:53 Intake & Output 09/11/18 09/12/18 09/12/18 18:59 06:59 18:59 Intake Total 1860 360 Output Total 181 181 Balance 1679 179 Intake: Intake, IV Titration 900 Amount Sodium Chloride 0.9% 1, 900 000 ml @ 75 mls/hr IV . [id number] [facility] Rx#:[id number] Oral 960 360 Output: Urine 180 180 Stool 1 1 Other: Voiding Method Toilet Toilet Urinal Urinal # Voids 1 2 2 # Bowel Movements 1 1 - Exam Constitutional: No acute distress, conversant, pleasant Eyes: Anicteric sclerae, moist conjunctiva, no lid-lag, PERRLA ENMT: NC/AT,Oropharynx clear, no erythema, exudates Neck:Supple, FROM, no masses, or JVD, No carotid bruits; No thyromegaly Lungs: Clear to auscultation, Clear to percussion, Normal respiratory effort, no accessory muscle use Cardiovascular: Heart regular in rate and rhythm, No murmurs, gallops, or rubs no peripheral edema Abdominal: Soft Nontender, nom distended, no guarding, no rebound or rigidity, Normoactive bowel sounds No hepatomegaly, No splenomegaly, No palpable mass No abdominal wall hernia noted Skin: Normal temperature, tone, texture, turgor, No induration No subcutaneous nodules, No rash, lesions, No ulcers Extremities:No digital cyanosis No clubbing, Pedal pulses intact and symmetrical Radial pulses intact and symmetrical Normal gait and station, No calf tenderness Psychiatric: Alert and oriented to person, place and time, Appropriate affect Intact judgement Neuro: Muscles Strength 5/5 in all 4 extremities, Sensation to light touch grossly present throughout, Cranial nerves II-XII grossly intact. 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 Continue Lomotil and Questran but will also add octreotide to regimen -Appreciate cardiology recommendations -d/c IVF -Full liquid diet -Pain control Clinical dehydration - IVF - monitor for signs for signs of improvement Thrush - nystatin swish and swallow Transaminitis secondary to metastatic disease - Hypertension -Recently diagnosed last admission -Has not been taking Norvasc last 2 days his morning blood pressures have been 90/50 Anemia, normocytic - check B12, folate, and fe studies Leukocytosis - suspect reactive to stress - Patient afebrile without signs of infection Disposition * Patient's diarrhea resolving ready for discharge however daughter is unable to care for patient at home and would like placement, patient's daughter found private facility for her father in [place] but the patient is unwilling to go to [place] as it's too far * We'll contact case management regarding placement for the patient locally
[2018-09-13] MEDS: OCTREOTIDE 100 MCG/ML INJ SQ SCH ×4 (00:50→23:36)
[2018-09-13] MEDS: SODIUM CHLORIDE 0.9% 1,000 ML IV SCH ×3 (04:43→21:17)
[2018-09-13 07:48] LABS: ALT 54 U/L (21-72); AST 105 U/L (17-59); Albumin 2.5 g/dL (3.5-5.0); Alkaline Phosphatase 295 U/L (38-126); Anion Gap 6 mmol/L; Blood Urea Nitrogen 8 mg/dL (9-20); Calcium 7.9 mg/dL (8.4-10.2); Carbon Dioxide 26 mmol/L (22-30); Chloride 103 mmol/L (98-107); Glucose 54 mg/dL (74-99); Potassium 3.8 mmol/L (3.5-5.1); Sodium 135 mmol/L (137-145); Total Protein 5.7 g/dL (6.3-8.2)
[2018-09-13 08:26] LABS: Anisocytosis Slight; Basophils # (A) 0.1 k/uL (0-0.2); Basophils % (A) 1 %; Eosinophils # (A) 0.2 k/uL (0-0.7); Eosinophils % (A) 1 %; HGB 9.2 gm/dL (13.0-17.5); Lymphocytes # (A) 1.7 k/uL (1.0-4.8); Lymphocytes % (A) 13 %; MCH 28.8 pg (25.0-35.0); MCV 84.7 fL (80.0-100.0); Monocytes # (A) 1.3 k/uL (0-1.0); Monocytes % (A) 10 %; Neutrophils # (A) 9.3 k/uL (1.3-7.7); Neutrophils % (A) 72 %; Platelet Count 270 k/uL (150-450); RBC 3.19 m/uL (4.30-5.90); RDW 17.5 % (11.5-15.5); WBC 12.8 k/uL (3.8-10.6)
[2018-09-13] MEDS: DIPHENOX-ATROP 2.5-0.025 MG 1 EACH TAB PO SCH ×4 (08:48→21:17)
[2018-09-13] MEDS: NYSTATIN 100,000 UNIT/ML SUSP 500,000 UNIT/5 ML CUP PO SCH ×4 (08:49→21:17)
[2018-09-13] MEDS: CHOLESTYRAMINE (WITH SUGAR) 4 GM PACKET PO SCH ×3 (08:49→18:20)
[2018-09-13] MEDS: amLODIPine 5 MG TAB PO SCH (08:49)
[2018-09-13 16:07] LABS: Glucose,Whole Blood 149 mg/dL (75-99)
[2018-09-14] MEDS: DIPHENOX-ATROP 2.5-0.025 MG 1 EACH TAB PO SCH ×2 (09:43→13:32)
[2018-09-14] MEDS: amLODIPine 5 MG TAB PO SCH (09:43)
[2018-09-14] MEDS: NYSTATIN 100,000 UNIT/ML SUSP 500,000 UNIT/5 ML CUP PO SCH ×2 (09:43→13:31)
[2018-09-14] MEDS: CHOLESTYRAMINE (WITH SUGAR) 4 GM PACKET PO SCH (09:43)
[2018-09-14] MEDS: OCTREOTIDE 100 MCG/ML INJ SQ SCH (09:44)
--- NOTE | 2018-09-14 10:10 | P.PN ---
Subjective Progress Note Date: 09/14/18 Principal diagnosis: Metastatic colon adenocarcinoma In follow-up today patient states decreased instances of diarrhea, no rectal pain or bleeding. He is starting to tolerate little more oral intake, no nausea, vomiting, he is still feeling pretty weak. Objective - Vital Signs Vital signs: Vital Signs Temp 98.3 F 09/14/18 05:00 Pulse 85 09/14/18 05:00 Resp 16 09/14/18 05:00 BP 131/62 09/14/18 05:00 Pulse Ox 97 09/14/18 05:00 Intake & Output 09/13/18 09/14/18 09/14/18 18:59 06:59 18:59 Intake Total 480 1910 Output Total 241 Balance 480 1669 Intake: Intake, IV Titration 600 Amount Sodium Chloride 0.9% 1, 600 000 ml @ 75 mls/hr IV . [id number] [facility] Rx#:[id number] Oral 480 1310 Output: Urine 240 Stool 1 Other: Voiding Method Toilet Toilet Urinal Urinal # Voids 1 1 # Bowel Movements 1 - Constitutional General appearance: Present: cooperative, no acute distress, thin - EENT Eyes: Present: anicteric sclerae, EOMI - Respiratory Details: Respirations even and unlabored - Cardiovascular Details: Skin is warm and dry, radial pulse is palpable 2+ - Musculoskeletal Musculoskeletal: Present: generalized weakness - Psychiatric Psychiatric: Present: A&O x's 3, appropriate affect, intact judgment & insight - Labs CBC & Chem 7: 09/13/18 06:43 09/13/18 06:43 Labs: Abnormal Lab Results - Last 24 Hours (Table) 09/13/18 Range/Units 16:05 POC Glucose (mg/dL) 149 H (75-99) mg/dL Assessment and Plan (1) Colon adenocarcinoma Narrative/Plan: Recent diagnosis, metastatic to the liver. Dr. Smith discussed with patient and daughter that if he participates in rehab he will not be able to begin Xeloda treatment until he has completed the same. Reviewed that if patient is admitted to an extended care facility he will not be able to receive Xeloda, due to insurance/financial constraints on extended care facilities. It is unknown if the patient will be able to re-have debilitated adequately to be discharged from a skilled facility. The potential for malignancy to continue to grow and inhibit rehabilitation was discussed. All of patient's and his daughter's questions were answered. They did verbalize understanding the limitations to treatment if patient requires skilled care. Patient's daughter was provided with contact information. If patient is able to rehabilitate as wants to consider oral treatment and they can feel free to contact us and we can facilitate the receipt of the drug. Current Visit: Yes Status: Acute Priority: High Code(s): C18.9 - MALIGNANT NEOPLASM OF COLON, UNSPECIFIED SNOMED Code(s): 535041649 (2) Anemia Current Visit: Yes Status: Acute Priority: Medium Code(s): D64.9 - ANEMIA, UNSPECIFIED SNOMED Code(s): 328148803 Plan: Doctor attests: I performed a history and physical examination of this patient with dictator. I developed impression and plan, agree with dictators note, documented as a scribe.
[2018-09-14 12:07] VITALS: BP 152/77; PULSE 91; RESP 17; TEMP 97.5
--- NOTE | 2018-09-14 17:58 | P.DS ---
Providers Date of admission: 09/10/18 00:58 Expected date of discharge: 09/14/18 Attending physician: Felix Reese MD Consults: 09/06/18 16:33 Consult Physician Routine Consulting Provider: Antony Smith Consult Reason/Comments: rectal cancer Do you want consulting provider notified?: Yes Primary care physician: Yahir De Dios - Discharge Diagnosis(es) (1) Diarrhea Status: Acute (2) Dehydration Status: Acute (3) Colon adenocarcinoma Status: Acute Priority: High (4) Anemia Status: Acute Priority: Medium Hospital Course: - Discharge Diagnosis(es) (1) Diarrhea Current Visit: Yes Status: Acute (2) Dehydration Current Visit: No Status: Acute (3) Colon adenocarcinoma Current Visit: Yes Status: Acute Priority: High (4) Anemia Current Visit: Yes Status: Acute Priority: Medium Hospital Course: The patient is a 88-year-old -[place] male that was admitted for persistent diarrhea attributed to his underlying colonic adenocarcinoma, the patient was admitted for dehydration and weakness. The patient had previously been seen by Dr. Smith with his daughter present and had previously agreed to try oral capcetabine as this was felt to be an easier treatment to tolerate due to poor performance status. Unfortunately the patient has not started due to persistent diarrhea that they were attempting to control on the outpatient basis with Lomotil. Stool studies done here were negative for C. diff, patient was started on Questran, Lomotil and loperamide and octreotide with some improvement of his symptoms. Patient was noted to have an anemia with a hemoglobin of 10.4 which was related to his underlying malignancy. Improvement of his diarrhea the patient was sent to the [facility] [place] [facility] with PRN Chavez tabs in stable condition this discharge process took approximately 30 minutes. The patient and family is instructed to follow-up with Dr. Smith regarding chemotherapy with Xeloda Focused exam GI: Nonacute abdomen, soft nontender nondistended Patient Condition at Discharge: Fair Plan - Discharge Summary New Discharge Prescriptions: New Diphenox-Atrop 2.5-0.025 mg [Lomotil] 1 each PO QID #60 tab Cholestyramine (with Sugar) [Questran Packet] 4 gm PO TID BETWEEN MEALS 30 Days #90 packet Continue amLODIPine [Norvasc] 5 mg PO DAILY #30 tab Loperamide HCl [Imodium A-D] 2 mg PO QID PRN PRN Reason: Diarrhea Discharge Medication List amLODIPine [Norvasc] 5 mg PO DAILY #30 tab 08/15/18 [Rx] Loperamide HCl [Imodium A-D] 2 mg PO QID PRN 09/06/18 [History] Cholestyramine (with Sugar) [Questran Packet] 4 gm PO TID BETWEEN MEALS 30 Days #90 packet 09/10/18 [Rx] Diphenox-Atrop 2.5-0.025 mg [Lomotil] 1 each PO QID #60 tab 09/10/18 [Rx] Follow up Appointment(s)/Referral(s): Yahir De Dios MD [Primary Care Provider] - 1-2 days (Patient to call Dr. De Dios's office Wednesday to schedule follow up appointment. The office is closed at time of discharge.) Patient Instructions/Handouts: Diphenoxylate/Atropine (By mouth), Cholestyramine (By mouth), Anemia (DC), Jaundice (DC) Discharge Disposition: HOME SELF-CARE Patient Condition at Discharge: Fair Plan - Discharge Summary New Discharge Prescriptions: New Diphenox-Atrop 2.5-0.025 mg [Lomotil] 1 each PO QID #60 tab Cholestyramine (with Sugar) [Questran Packet] 4 gm PO TID BETWEEN MEALS 30 Days #90 packet Ondansetron HCl [Zofran] 4 mg PO TID PRN #30 tablet PRN Reason: Nausea Continue amLODIPine [Norvasc] 5 mg PO DAILY #30 tab Loperamide HCl [Imodium A-D] 2 mg PO QID PRN PRN Reason: Diarrhea Discharge Medication List amLODIPine [Norvasc] 5 mg PO DAILY #30 tab 08/15/18 [Rx] Loperamide HCl [Imodium A-D] 2 mg PO QID PRN 09/06/18 [History] Cholestyramine (with Sugar) [Questran Packet] 4 gm PO TID BETWEEN MEALS 30 Days #90 packet 09/10/18 [Rx] Diphenox-Atrop 2.5-0.025 mg [Lomotil] 1 each PO QID #60 tab 09/10/18 [Rx] Ondansetron HCl [Zofran] 4 mg PO TID PRN #30 tablet 09/13/18 [Rx] Follow up Appointment(s)/Referral(s): Antony Smith MD [STAFF PHYSICIAN] - As Needed Yahir De Dios MD [Primary Care Provider] - 1-2 days (Patient to call Dr. De Dios's office Wednesday morning to schedule follow up appointment. The office is closed at time of discharge.) Patient Instructions/Handouts: Diphenoxylate/Atropine (By mouth), Cholestyramine (By mouth), Anemia (DC), Jaundice (DC) Discharge Disposition: TRANSFER TO SNF/ECF
== END 2018-09-14 15:30 | DRG 392 ==
LOC: EC 10:32 → 3NMEDONC 14:09 → INTOOBSV 14:09 → 3NMEDONC 18:54 → OBSVTOIN 09-10 00:58
PROVIDERS: ADMIT Family Medicine; ATTEND Family Medicine
DX: R19.7 Diarrhea, unspecified (principal); C20 Malignant neoplasm of rectum; C78.7 Secondary malignant neoplasm of liver and intrahepatic bile duct; E86.0 Dehydration; N28.1 Cyst of kidney, acquired; R15.9 Full incontinence of feces; D63.0 Anemia in neoplastic disease; B37.9 Candidiasis, unspecified; D72.829 Elevated white blood cell count, unspecified; I10 Essential (primary) hypertension; R32 Unspecified urinary incontinence; Z79.899 Other long term (current) drug therapy
CPT/HCPCS: 36415; 76705; 80053; 82150; 82607; 82728; 82746; 82747; 83540; 83550; 83690; 83735; 85025; 85027; 87324; 96360; 96361; 99285